=== PATIENT | female | born 1980 | race Caucasian/White ===

== ENCOUNTER 2020-11-06 18:13 | Emergency (ER) | payer OTHER ==
[2020-11-06 18:20] VITALS: BP 130/82; PULSE 64; TEMP 98.4
[2020-11-06] MEDS ORDERED: SODIUM CHLORIDE 0.9% 1,000 ML IV ONE (18:36)
[2020-11-06] MEDS ORDERED: ACETAMINOPHEN TAB 500 MG TAB PO STA (18:38)
--- NOTE | 2020-11-06 18:41 | ED ---
General Adult HPI - General Chief complaint: Vaginal Bleeding Stated complaint: 10 wks - bleeding Time Seen by Provider: 11/06/20 18:26 Source: patient, RN notes reviewed Mode of arrival: ambulatory Limitations: no limitations - History of Present Illness Initial comments: female currently 10 weeks with an LMP of August 2405/14 to the emergency room for a chief complaint of vaginal bleeding. Patient states she has had light brown spotting for the past 3 days. States that she thought this was probably implantation bleeding but started to get some cramping pain in her pelvis about 2 hours ago. Denies fevers or chills. Denies nausea vomiting or diarrhea. Patient reports she has had about 4 miscarriages in the past so is cautious about this. Patient recently moved to the area and currently does not have [facility].Patient has no other complaints at this time including shortness of breath, chest pain, nausea or vomiting, headache, or visual changes. - Related Data Previous Rx's Medication Instructions Recorded Pnv No.95/Ferrous Fum/Folic AC 1 each PO DAILY #60 tablet 11/06/20 [ Multivitamin Tablet] Allergies Allergy/AdvReac Type Severity Reaction Status Date / Time morphine Allergy Rash/Hives Verified 11/06/20 19:23 Review of Systems ROS Statement: Those systems with pertinent positive or pertinent negative responses have been documented in the HPI. ROS Other: All systems not noted in ROS Statement are negative. Past Medical History Additional Past Medical History / Comment(s): Cervical CA History of Any Multi-Drug Resistant Organisms: None Reported Past Surgical History: Section Past Psychological History: No Psychological Hx Reported Smoking Status: Former smoker Past Alcohol Use History: None Reported Past Drug Use History: None Reported General Exam Limitations: no limitations General appearance: alert, in no apparent distress Head exam: Present: atraumatic, normocephalic, normal inspection Eye exam: Present: normal appearance, PERRL, EOMI. Absent: scleral icterus, conjunctival injection, periorbital swelling ENT exam: Present: normal exam, mucous membranes moist Neck exam: Present: normal inspection. Absent: tenderness, meningismus, lymphadenopathy Respiratory exam: Present: normal lung sounds bilaterally. Absent: respiratory distress, wheezes, rales, rhonchi, stridor Cardiovascular Exam: Present: regular rate, normal rhythm, normal heart sounds. Absent: bradycardia, tachycardia, irregular rhythm GI/Abdominal exam: Present: soft, tenderness (minimal generalized lower abdomina l tendenress), normal bowel sounds. Absent: distended, guarding, rebound, rigid Speculum exam: Absent: other (pt refused) Neurological exam: Present: alert Course Vital Signs 11/06/20 11/06/20 18:14 18:54 Temperature 98.4 F Pulse Rate 64 Respiratory 17 16 Rate Blood Pressure 130/82 O2 Sat by Pulse 99 Oximetry Medical Decision Making - Medical Decision Making 40-year-old female currently 10 weeks with an LMP of August 31 presents for vaginal spotting. Patient reports she has had light brown spotting for the past few days. Some slight abdominal cramping as well. Minimal tenderness noted suprapubically. Patient refusing pelvic exam stating she has been poked and prodded enough and would prefer to wait to do this until she sees [facility]. I did note that I cannot quantify blood volume without doing a pelvic however patient states it is very light. CBC CMP unremarkable. Urinalysis is negative for infection. Patient's blood type is O+. Ultrasound does reveal a twin gestation with dichorionic diamniotic gestation. There is a thick septum the fetuses. Patient also has ovarian cysts noted which could be causing some of the cramping pain. Patient has not been taking vit amins which I did recommend she begin. Rx given. Patient [place] the [place] and does not have established care with an [facility]. I did speak with on-call [facility] Dr. Guy who recommends she call the office for an appointment on Sunday. However he reports she may need to be seen by [employer] teacher/GYN which can be determined at that time. Patient will return here for any worsening symptoms. I discussed this case with attending Dr. Emery who agrees with this assessment and treatment plan. - Lab Data Result diagrams: 11/06/20 18:40 11/06/20 18:40 Lab Results 11/06/20 11/06/20 11/06/20 Range/Units 18:35 18:40 18:40 WBC 11.3 H (3.8-10.6) k/uL RBC 4.43 (3.80-5.40) m/uL Hgb 13.2 (11.4-16.0) gm/dL Hct 37.7 (34.0-46.0) % MCV 85.1 (80.0-100.0) fL MCH 29.8 (25.0-35.0) pg MCHC 35.0 (31.0-37.0) g/dL RDW 13.2 (11.5-15.5) % Plt Count 176 (150-450) k/uL MPV 8.0 Neutrophils % 71 % Lymphocytes % 20 % Monocytes % 4 % Eosinophils % 3 % Basophils % 1 % Neutrophils # 8.1 H (1.3-7.7) k/uL Lymphocytes # 2.2 (1.0-4.8) k/uL Monocytes # 0.5 (0-1.0) k/uL Eosinophils # 0.3 (0-0.7) k/uL Basophils # 0.1 (0-0.2) k/uL Sodium (137-145) mmol/L Potassium (3.5-5.1) mmol/L Chloride (98-107) mmol/L Carbon Dioxide (22-30) mmol/L Anion Gap mmol/L BUN (7-17) mg/dL Creatinine (0.52-1.04) mg/dL Est GFR (CKD-EPI)AfAm (>60 ml/min/1.73 sqM) Est GFR (CKD-EPI)NonAf (>60 ml/min/1.73 sqM) Glucose (74-99) mg/dL Calcium (8.4-10.2) mg/dL Total Bilirubin (0.2-1.3) mg/dL AST (14-36) U/L ALT (4-34) U/L Alkaline Phosphatase (38-126) U/L Total Protein (6.3-8.2) g/dL Albumin (3.5-5.0) g/dL Urine Color Colorless Urine Appearance Clear (Clear) Urine pH 6.0 (5.0-8.0) Ur Specific Barre 1.004 (1.001-1.035) Urine Protein Negative (Negative) Urine Glucose (UA) Negative (Negative) Urine Ketones Negative (Negative) Urine Blood Negative (Negative) Urine Nitrite Negative (Negative) Urine Bilirubin Negative (Negative) Urine Urobilinogen <2.0 (<2.0) mg/dL Ur Leukocyte Esterase Negative (Negative) Blood Type O Positive Blood Type Recheck No Previous Record Bld Type Recheck Status [facility] ONLY 11/06/20 Range/Units 18:40 WBC (3.8-10.6) k/uL RBC (3.80-5.40) m/uL Hgb (11.4-16.0) gm/dL Hct (34.0-46.0) % MCV (80.0-100.0) fL MCH (25.0-35.0) pg MCHC (31.0-37.0) g/dL RDW (11.5-15.5) % Plt Count (150-450) k/uL MPV Neutrophils % % Lymphocytes % % Monocytes % % Eosinophils % % Basophils % % Neutrophils # (1.3-7.7) k/uL Lymphocytes # (1.0-4.8) k/uL Monocytes # (0-1.0) k/uL Eosinophils # (0-0.7) k/uL Basophils # (0-0.2) k/uL Sodium 133 L (137-145) mmol/L Potassium 3.8 (3.5-5.1) mmol/L Chloride 107 (98-107) mmol/L Carbon Dioxide 21 L (22-30) mmol/L Anion Gap 5 mmol/L BUN 10 (7-17) mg/dL Creatinine 0.54 (0.52-1.04) mg/dL Est GFR (CKD-EPI)AfAm >90 (>60 ml/min/1.73 sqM) Est GFR (CKD-EPI)NonAf >90 (>60 ml/min/1.73 sqM) Glucose 89 (74-99) mg/dL Calcium 9.3 (8.4-10.2) mg/dL Total Bilirubin 0.2 (0.2-1.3) mg/dL AST 20 (14-36) U/L ALT 14 (4-34) U/L Alkaline Phosphatase 52 (38-126) U/L Total Protein 6.6 (6.3-8.2) g/dL Albumin 3.9 (3.5-5.0) g/dL Urine Color Urine Appearance (Clear) Urine pH (5.0-8.0) Ur Specific Barre (1.001-1.035) Urine Protein (Negative) Urine Glucose (UA) (Negative) Urine Ketones (Negative) Urine Blood (Negative) Urine Nitrite (Negative) Urine Bilirubin (Negative) Urine Urobilinogen (<2.0) mg/dL Ur Leukocyte Esterase (Negative) Blood Type Blood Type Recheck Bld Type Recheck Status Disposition Clinical Impression: Twin gestation in first trimester, Vaginal bleeding, Threatened miscarriage Disposition: HOME SELF-CARE Condition: Good Instructions (If sedation given, give patient instructions): Threatened Miscarriage (ED) Additional Instructions: Please take vitamins. Please follow-up with [facility]. If you have any worsening symptoms return to the emergency room. Prescriptions: Pnv No.95/Ferrous Fum/Folic AC [ Multivitamin Tablet] 1 each PO DAILY #60 tablet Is patient prescribed a controlled substance at d/c from ED?: No Referrals: Nonstaff,Physician [Primary Care Provider] - 1-2 days Lew Kimball MD [STAFF PHYSICIAN] - 1-2 days Time of Disposition: 19:57
[2020-11-06 18:54] LABS: Basophils # (A) 0.1 k/uL (0-0.2); Basophils % (A) 1 %; Eosinophils # (A) 0.3 k/uL (0-0.7); Eosinophils % (A) 3 %; HCT 37.7 % (34.0-46.0); HGB 13.2 gm/dL (11.4-16.0); Lymphocytes # (A) 2.2 k/uL (1.0-4.8); Lymphocytes % (A) 20 %; MCH 29.8 pg (25.0-35.0); MCV 85.1 fL (80.0-100.0); Monocytes # (A) 0.5 k/uL (0-1.0); Monocytes % (A) 4 %; Neutrophils # (A) 8.1 k/uL (1.3-7.7); Neutrophils % (A) 71 %; Platelet Count 176 k/uL (150-450); RBC 4.43 m/uL (3.80-5.40); RDW 13.2 % (11.5-15.5); WBC 11.3 k/uL (3.8-10.6)
[2020-11-06 19:00] VITALS: RESP 16
[2020-11-06 19:01] LABS: Appearance,Urine Clear (Clear); Bilirubin,Urine Negative (Negative); Blood,Urine Negative (Negative); Color,Urine Colorless; Glucose,Urine (UA) Negative (Negative); Ketones,Urine Negative (Negative); Leukocyte Esterase,Urine Negative (Negative); Nitrite,Urine Negative (Negative); Protein,Urine Negative (Negative); Specific Gravity,Urine 1.004 (1.001-1.035); Urobilinogen,Urine <2.0 mg/dL (<2.0)
[2020-11-06 19:07] LABS: ALT 14 U/L (4-34); AST 20 U/L (14-36); African American GFR (CKD) >90 (>60 ml/min/1.73 sqM); Albumin 3.9 g/dL (3.5-5.0); Alkaline Phosphatase 52 U/L (38-126); Anion Gap 5 mmol/L; Blood Urea Nitrogen 10 mg/dL (7-17); Calcium 9.3 mg/dL (8.4-10.2); Carbon Dioxide 21 mmol/L (22-30); Chloride 107 mmol/L (98-107); Glucose 89 mg/dL (74-99); Non-African American GFR(CKD) >90 (>60 ml/min/1.73 sqM); Potassium 3.8 mmol/L (3.5-5.1); Sodium 133 mmol/L (137-145); Total Bilirubin 0.2 mg/dL (0.2-1.3); Total Protein 6.6 g/dL (6.3-8.2)
--- NOTE | 2020-11-06 19:27 | US ---
EXAMINATION TYPE: US OB <= 14 wk twins DATE OF EXAM: 11/06/2020 COMPARISON: NONE CLINICAL HISTORY: pain. spotting EXAM PERFORMED: Transabdominal (TA) EXAM MEASUREMENTS: GESTATIONAL AGE / DATING Physician Established: Not yet established Dates by LMP: (9 weeks/4 days) EDC: 06/07/2021 Dates by First Scan: No previous this is first scan Dates by Current Scan for Baby A: ( 8 weeks/2 days) EDC: 06/16/2021 Dates by Current Scan for Baby B: (8 weeks/3 days) EDC: 06/15/2021 MATERNAL ANATOMY Uterus: 11.1 x 8.3 x 8.5 cm Right Ovary: 4.4 x 3.5 x 3.5 cm Left Ovary: 3.4 x 2.2 x 2.8 cm Post CDS / Adnexa: wnl Presence of free fluid: no Presence of subchorionic bleed: no Presence of two separate gestational sacs: yes GESTATION / SURVEY TWIN A CRL: 1.83 cm (8wks/2days) Yolk Sac (normal less than 6mm): 3 mm Heart Rate: 158 bpm Rhythm: Normal IUP: Viable IUP TWIN B CRL: 1.86 cm (wks/days) Yolk Sac (normal less than 6mm): 4 mm Heart Rate: 161 bpm Rhythm: Normal IUP: Viable IUP Date of LMP: 08/31/2020 Beta HcG (if available): Not available at this time Viable twin IUP. Cyst left ovary measuring 2.0 cm. Cyst right ovary measuring 3.0 cm IMPRESSION: Twin gestation.. This is a dichorionic diamniotic gestation. There is a thick septum the f etuses. The ultrasound gestational age is are 8 weeks and 2 days. No complicating process seen.
[2020-11-06 21:43] LABS: HCG,Quantitative Serum >225000.0 mIU/mL
== END 2020-11-06 20:05 | disposition home or self-care (01) ==
LOC: EC 18:13
DX: O20.0 Threatened abortion (principal); N83.202 Unspecified ovarian cyst, left side; N83.201 Unspecified ovarian cyst, right side; Z88.5 Allergy status to narcotic agent; Z85.41 Personal history of malignant neoplasm of cervix uteri; Z87.891 Personal history of nicotine dependence; Z3A.10 10 weeks gestation of pregnancy
CPT/HCPCS: 36415; 76801; 76802; 80053; 81003; 84702; 85025; 86900; 86901; 96360; 99284

== ENCOUNTER 2021-01-03 20:23 | Emergency (ER) | payer OTHER ==
[2021-01-03 20:38] VITALS: TEMP 98
[2021-01-03] MEDS ORDERED: SODIUM CHLORIDE 0.9% 1,000 ML IV ONE (21:27)
[2021-01-03 21:49] VITALS: RESP 18
[2021-01-03 22:06] LABS: Basophils % (A) 0 %; Eosinophils # (A) 0.3 k/uL (0-0.7); Eosinophils % (A) 2 %; HCT 32.1 % (34.0-46.0); HGB 11.6 gm/dL (11.4-16.0); Lymphocytes % (A) 16 %; MCH 29.9 pg (25.0-35.0); MCHC 36.2 g/dL (31.0-37.0); MCV 82.5 fL (80.0-100.0); Mean Platelet Volume 8.5; Monocytes # (A) 0.6 k/uL (0-1.0); Monocytes % (A) 5 %; Neutrophils # (A) 9.4 k/uL (1.3-7.7); Neutrophils % (A) 76 %; Platelet Count 180 k/uL (150-450); RBC 3.89 m/uL (3.80-5.40); RDW 14.7 % (11.5-15.5); WBC 12.4 k/uL (3.8-10.6)
[2021-01-03 22:10] LABS: Appearance,Urine Clear (Clear); Bilirubin,Urine Negative (Negative); Blood,Urine Negative (Negative); Color,Urine Light Yellow; Glucose,Urine (UA) Negative (Negative); Ketones,Urine Negative (Negative); Leukocyte Esterase,Urine Negative (Negative); Nitrite,Urine Negative (Negative); Protein,Urine Negative (Negative); Specific Gravity,Urine 1.008 (1.001-1.035); Urobilinogen,Urine <2.0 mg/dL (<2.0)
[2021-01-03 22:16] LABS: ALT 13 U/L (4-34); AST 19 U/L (14-36); African American GFR (CKD) >90 (>60 ml/min/1.73 sqM); Albumin 3.4 g/dL (3.5-5.0); Alkaline Phosphatase 61 U/L (38-126); Anion Gap 8 mmol/L; Blood Urea Nitrogen 11 mg/dL (7-17); Calcium 9.1 mg/dL (8.4-10.2); Carbon Dioxide 20 mmol/L (22-30); Chloride 104 mmol/L (98-107); Glucose 83 mg/dL (74-99); Lipase 138 U/L (23-300); Non-African American GFR(CKD) >90 (>60 ml/min/1.73 sqM); Potassium 3.8 mmol/L (3.5-5.1); Sodium 132 mmol/L (137-145); Total Bilirubin 0.3 mg/dL (0.2-1.3)
--- NOTE | 2021-01-03 23:37 | ED ---
Abdominal Pain HPI - General Chief Complaint: Abdominal Pain Stated Complaint: 18 wks preg with twins, ABD pain Time Seen by Provider: 01/03/21 20:44 Source: patient Mode of arrival: ambulatory Limitations: no limitations - History of Present Illness Initial Comments: 40 year old female patient who is 18 weeks with twin gestation, G7, P3, with 3 miscarriages in the past and presents to the emergency department today for evaluation of right-sided abdominal pain. States the pain has been present for the last 3-4 hours and seeming to get worse. States it is constant. Denies any radiation through to her back. Denies any abnormal vaginal bleeding or discharge. Denies hematuria, dysuria, urinary frequency, urinary urgency. States she had ultrasound last Sunday and everything looked fine. She states she has had some nausea, no vomiting. States she has been a little constipated, but did have a bowel movement today. Reports a small amount of blood in her stool. Has had three c-sections, no other abdominal surgeries. Patient denies any recent rash, cough, shortness of breath, chest pain, diarrhea, constipation, back pain, numbness, tingling, dizziness, weakness, headache, visual changes, or any other complaints. - Related Data Home Medications Medication Instructions Recorded Confirmed Acetaminophen Tab [Tylenol] 650 mg PO DAILY PRN 01/03/21 01/03/21 Calcium Carbonate [Tums] 500 mg PO Q4-6H PRN 01/03/21 01/03/21 Allergies Allergy/AdvReac Type Severity Reaction Status Date / Time morphine Allergy Rash/Hives Verified 01/03/21 22:01 Review of Systems ROS Statement: Those systems with pertinent positive or pertinent negative responses have been documented in the HPI. ROS Other: All systems not noted in ROS Statement are negative. Past Medical History Additional Past Medical History / Comment(s): Cervical CA History of Any Multi-Drug Resistant Organisms: None Reported Past Surgical History: Section Past Psychological History: No Psychological Hx Reported Smoking Status: Former smoker Past Alcohol Use History: None Reported Past Drug Use History: None Reported General Exam Limitations: no limitations General appearance: alert, in no apparent distress, other (Physical well- developed, well-nourished adult female patient in no acute distress. Vital signs upon presentation are temperature 98.0F, pulse 83, respirations 20, blood pressure 118/72, pulse ox 100% on room air.) Eye exam: Present: normal appearance, PERRL, EOMI. Absent: scleral icterus, conjunctival injection, periorbital swelling ENT exam: Present: normal exam, normal oropharynx, mucous membranes moist Respiratory exam: Present: normal lung sounds bilaterally. Absent: respiratory distress, wheezes, rales, rhonchi, stridor Cardiovascular Exam: Present: regular rate, normal rhythm, normal heart sounds. Absent: systolic murmur, diastolic murmur, rubs, gallop, clicks GI/Abdominal exam: Present: tenderness (right mid abdomen), normal bowel sounds, other (gravid abdomen). Absent: distended, guarding, rebound, rigid Neurological exam: Present: alert, oriented X3, CN II-XII intact Psychiatric exam: Present: normal affect, normal mood Skin exam: Present: warm, dry, intact, normal color. Absent: rash Course Vital Signs 01/03/21 01/03/21 01/03/21 20:30 21:48 23:10 Temperature 98.0 F Pulse Rate 83 60 74 Respiratory 20 18 18 Rate Blood Pressure 118/72 103/53 100/61 O2 Sat by Pulse 100 96 98 Oximetry 01/03/21 23:38 Temperature Pulse Rate 72 Respiratory 18 Rate Blood Pressure 113/60 O2 Sat by Pulse 97 Oximetry Medical Decision Making - Medical Decision Making 40-year-old female patient presents to the emergency department today for evaluation of right-sided abdominal pain. Patient is 19 weeks with twin gestation. She is G7, P3, 85 with 3 miscarriages in the past. Physical examination did reveal right-sided abdominal tenderness. Labs reviewed and revealed mildly elevated white blood cell count at 12.3 consistent with . She is afebrile normal vital signs. Ultrasound of the appendix was obtained but did they were unable to identify the appendix. Ultrasound of the fetuses were obtained and showed satisfactory growth compared to old exam at no evidence for placental abnormality. Upon reevaluation patient is resting in bed. States applying hot packs over the area did seem to help. States the pain is positional. We did discuss the possibility of early appendicitis and we discussed signs or symptoms of worsening of this condition. She does feel c omfortable being discharged home at this time. She is instructed to follow-up with ORDER ANALYST for recheck as soon as possible. Return parameters were discussed in detail. She verbalizes understanding and agrees with this plan. Case discussed with my attending Dr. Head. - Lab Data Result diagrams: 01/03/21 21:46 01/03/21 21:46 Lab Results 01/03/21 01/03/21 01/03/21 Range/Units 21:46 21:46 21:46 WBC 12.4 H (3.8-10.6) k/uL RBC 3.89 (3.80-5.40) m/uL Hgb 11.6 (11.4-16.0) gm/dL Hct 32.1 L (34.0-46.0) % MCV 82.5 (80.0-100.0) fL MCH 29.9 (25.0-35.0) pg MCHC 36.2 (31.0-37.0) g/dL RDW 14.7 (11.5-15.5) % Plt Count 180 (150-450) k/uL MPV 8.5 Neutrophils % 76 % Lymphocytes % 16 % Monocytes % 5 % Eosinophils % 2 % Basophils % 0 % Neutrophils # 9.4 H (1.3-7.7) k/uL Lymphocytes # 2.0 (1.0-4.8) k/uL Monocytes # 0.6 (0-1.0) k/uL Eosinophils # 0.3 (0-0.7) k/uL Basophils # 0.0 (0-0.2) k/uL Sodium 132 L (137-145) mmol/L Potassium 3.8 (3.5-5.1) mmol/L Chloride 104 (98-107) mmol/L Carbon Dioxide 20 L (22-30) mmol/L Anion Gap 8 mmol/L BUN 11 (7-17) mg/dL Creatinine 0.63 (0.52-1.04) mg/dL Est GFR (CKD-EPI)AfAm >90 (>60 ml/min/1.73 sqM) Est GFR (CKD-EPI)NonAf >90 (>60 ml/min/1.73 sqM) Glucose 83 (74-99) mg/dL Plasma Lactic Acid Douglas (0.7-2.0) mmol/L Calcium 9.1 (8.4-10.2) mg/dL Total Bilirubin 0.3 (0.2-1.3) mg/dL AST 19 (14-36) U/L ALT 13 (4-34) U/L Alkaline Phosphatase 61 (38-126) U/L Total Protein 6.0 L (6.3-8.2) g/dL Albumin 3.4 L (3.5-5.0) g/dL Lipase 138 (23-300) U/L Urine Color Light Yellow Urine Appearance Clear (Clear) Urine pH 7.0 (5.0-8.0) Ur Specific Christine 1.008 (1.001-1.035) Urine Protein Negative (Negative) Urine Glucose (UA) Negative (Negative) Urine Ketones Negative (Negative) Urine Blood Negative (Negative) Urine Nitrite Negative (Negative) Urine Bilirubin Negative (Negative) Urine Urobilinogen <2.0 (<2.0) mg/dL Ur Leukocyte Esterase Negative (Negative) 01/03/21 Range/Units 21:46 WBC (3.8-10.6) k/uL RBC (3.80-5.40) m/uL Hgb (11.4-16.0) gm/dL Hct (34.0-46.0) % MCV (80.0-100.0) fL MCH (25.0-35.0) pg MCHC (31.0-37.0) g/dL RDW (11.5-15.5) % Plt Count (150-450) k/uL MPV Neutrophils % % Lymphocytes % % Monocytes % % Eosinophils % % Basophils % % Neutrophils # (1.3-7.7) k/uL Lymphocytes # (1.0-4.8) k/uL Monocytes # (0-1.0) k/uL Eosinophils # (0-0.7) k/uL Basophils # (0-0.2) k/uL Sodium (137-145) mmol/L Potassium (3.5-5.1) mmol/L Chloride (98-107) mmol/L Carbon Dioxide (22-30) mmol/L Anion Gap mmol/L BUN (7-17) mg/dL Creatinine (0.52-1.04) mg/dL Est GFR (CKD-EPI)AfAm (>60 ml/min/1.73 sqM) Est GFR (CKD-EPI)NonAf (>60 ml/min/1.73 sqM) Glucose (74-99) mg/dL Plasma Lactic Acid Douglas 0.8 (0.7-2.0) mmol/L Calcium (8.4-10.2) mg/dL Total Bilirubin (0.2-1.3) mg/dL AST (14-36) U/L ALT (4-34) U/L Alkaline Phosphatase (38-126) U/L Total Protein (6.3-8.2) g/dL Albumin (3.5-5.0) g/dL Lipase (23-300) U/L Urine Color Urine Appearance (Clear) Urine pH (5.0-8.0) Ur Specific Christine (1.001-1.035) Urine Protein (Negative) Urine Glucose (UA) (Negative) Urine Ketones (Negative) Urine Blood (Negative) Urine Nitrite (Negative) Urine Bilirubin (Negative) Urine Urobilinogen (<2.0) mg/dL Ur Leukocyte Esterase (Negative) - Radiology Data Radiology results: report reviewed, image reviewed Ultrasound of the appendix is obtained. Report is reviewed in its entirety. Impression by Dr. Ortega shows appendix not seen. No solid or cystic mass identified. No free fluid. Ultrasound of the fetuses are obtained. Report was reviewed in its entirety. Impression by Dr. Ortega shows satisfactory growth compared to old exam of 11/06/2020. previa. No evidence of placental abruption. Disposition Clinical Impression: Abdominal pain during Disposition: HOME SELF-CARE Condition: Good Instructions (If sedation given, give patient instructions): Abdominal Pain in (ED) Additional Instructions: Follow up with an ORDER ANALYST for recheck as soon as possible. Take Tylenol for severe pain. Use warm packs as directed. Return for any new, worsening, or concerning symptoms. Return especially for elevation in temperature, vomiting, or worsening pain. Is patient prescribed a controlled substance at d/c from ED?: No Referrals: None,Stated [Primary Care Provider] - 1-2 days Time of Disposition: 00:12
[2021-01-03 23:40] VITALS: BP 113/60; PULSE 72
--- NOTE | 2021-01-03 23:44 | US ---
EXAMINATION TYPE: US abdomen APPY DATE OF EXAM: 01/03/2021 COMPARISON: NONE CLINICAL HISTORY: Right lower abd pain. Right-sided lower abdominal pain x 1 day. APPENDIX The appendix is not seen by ultrasound at this time. Is the appendix seen in its entirety from the proximal cecum to distal end: No Is there inflammatory changes or free fluid present: Not seen. IMPRESSION: Appendix not seen. No solid or cystic mass identified. No free fluid.
--- NOTE | 2021-01-04 | US ---
EXAMINATION TYPE: US OB >= 14 wk twins DATE OF EXAM: 01/03/2021 COMPARISON: US CLINICAL HISTORY: Right lower abd pain. Right-sided pain x 1 day. Hx 3 C-Sections, cervical cancer, 4 miscarriages, D & C x 2. . GESTATIONAL AGE / DATING Physician Established: (19 weeks/0 days) EDC: 05/30/2021 Dates by LMP: 08/23/2020 (19 weeks/0 days) EDC: 05/30/2020 Dates by First Scan: for Baby A: (16 weeks/5 days) EDC: 06/15/2021. Was called Baby B last scan. Dates by Current Scan for Baby A: (17 weeks/1 day) EDC: 06/12/2021. Baby A sac appears closer to cervix. Dates by First Scan: for Baby B: (16 weeks/4 days) EDC: 06/16/2021. Was called Baby A last scan. Dates by Current Scan for Baby B: (17 weeks/2 days) EDC: 06/11/2021 GENERAL TWIN SURVEY TWIN A LOCATION in regards to maternal abd: Right TWIN B LOCATION in regards to maternal abd: Left MEMBRANE SEEN: Yes CERVICAL LENGTH (transabdominal; norm > 3.0cm): 4.4 cm TWIN A: SURVEY/BIOMETRY PLACENTA: Posterior PREVIA: Limited visibility. Appears to be low lying 1.61 cm from cervix. DONALD:? 12.34 cm?Normal PRESENTATION: Breech BPD: 3.58 cm 17 weeks / 0 days HC: 13.54 cm 17 weeks / 0 days AC: 11.50 cm 17 weeks / 2 days FL: 2.33 cm 17 weeks / 0 days ESTIMATED WEIGHT IN GRAMS: 182.52 grams ESTIMATED WEIGHT IN LBS/OZS: 0 lbs. 6 oz. WEIGHT PERCENTAGE BASED ON ESTABLISHED DATES: <3% HC/AC: 1.18 Normal FL/AC: 20.31 HEART RATE: 149 bpm RHYTHM: Normal TWIN B: SURVEY/BIOMETRY PLACENTA: Anterior. Appears heterogeneous posteriorly. PREVIA: No previa DONALD:? 13.10 cm?Normal PRESENTATION: Breech BPD: 3.70 cm 17 weeks / 2 days HC: 13.87 cm 17 weeks / 2 days AC: 12.46 cm 18 weeks / 1 day FL: 2.22 cm 16 weeks / 5 days ESTIMATED WEIGHT IN GRAMS: 192.27 grams ESTIMATED WEIGHT IN LBS/OZS: 0 lbs. 7 oz. WEIGHT PERCENTAGE BASED ON ESTABLISHED DATES: <3% HC/AC: 1.11 Normal FL/AC: 17.80 HEART RATE: 152 bpm RHYTHM: Normal Scanned patient's area of pain, right pelvic area. Prominent blood vessels seen. Scanned left side fo r comparison. IMPRESSION: There is satisfactory growth compared to old exam of November 06, 2020. No placenta previa. No evidence of placenta abruption.
== END 2021-01-04 00:24 | disposition home or self-care (01) ==
LOC: EC 20:23
DX: O26.892 Other specified pregnancy related conditions, second trimester (principal); R10.9 Unspecified abdominal pain; R10.819 Abdominal tenderness, unspecified site; O99.112 Other diseases of the blood and blood-forming organs and certain disorders involving the immune mechanism complicating pregnancy, second trimester; D72.829 Elevated white blood cell count, unspecified; Z88.5 Allergy status to narcotic agent; Z3A.19 19 weeks gestation of pregnancy; Z87.891 Personal history of nicotine dependence; Z85.41 Personal history of malignant neoplasm of cervix uteri
CPT/HCPCS: 36415; 76705; 76805; 76810; 80053; 81003; 83605; 83690; 85025; 96360; 99284

== ENCOUNTER → 2021-02-21 | Outpatient (CLI) | payer OTHER ==
--- NOTE | 2021-02-21 15:55 | US ---
EXAMINATION TYPE: US venous doppler duplex LE LT DATE OF EXAM: 02/21/2021 3:43 PM COMPARISON: NONE CLINICAL HISTORY: 40-year-old female LLE M79.662 Pain in left lower limb. Pt states left leg pain x 2 days, pt approximately 24 weeks with twins SIDE PERFORMED: Left TECHNIQUE: The lower extremity deep venous system is examined utilizing real time linear array sonog emilia with graded compression, doppler sonography and color-flow sonography. FINDINGS: VESSELS IMAGED: Common Femoral Vein Deep Femoral Vein Greater Saphenous Vein * Femoral Vein Popliteal Vein Small Saphenous Vein * Proximal Calf Veins (* superficial vessels) Left Leg: Negative for DVT Results called to Nilsa BRANNON at Dr's office at time of exam IMPRESSION: No evidence for DVT within the left lower extremity imaged from the groin to the upper calf.
== END | disposition home or self-care (01) ==
LOC: RADUSWWP 15:27
PROVIDERS: ATTEND Obstetrics & Gynecology
DX: M79.662 Pain in left lower leg (principal); Z3A.24 24 weeks gestation of pregnancy

== ENCOUNTER → 2021-03-17 | Outpatient (CLI) | payer OTHER ==
--- NOTE | 2021-03-17 12:48 | MR ---
EXAMINATION TYPE: MR lumbar spine wo con DATE OF EXAM: 03/17/2021 12:19 PM COMPARISON: NONE HISTORY: Low back pain, swelling, left leg weakness. Multiplanar, MultiSpin echo imaging of the lumbar spine was performed. L1-L2: Normal disc appearance without desiccation. No herniation, protrusion or disc bulging. No ca nal stenosis is present. Foramina are patent bilaterally. L2-L3: Normal disc appearance without desiccation. No herniation, protrusion or disc bulging. No ca nal stenosis is present. Foramina are patent bilaterally. L3-L4: Normal disc appearance without desiccation. No herniation, protrusion or disc bulging. No ca nal stenosis is present. Foramina are patent bilaterally. L4-L5: Normal disc appearance without desiccation. No herniation, protrusion or disc bulging. No ca nal stenosis is present. Foramina are patent bilaterally. L5-S1: Normal disc appearance without desiccation. No herniation, protrusion or disc bulging. No ca nal stenosis is present. Foramina are patent bilaterally. Lumbar segments are intact. No paraspinal masses are identified. Conus medullaris has a normal appe arance. IMPRESSION: 1. No distinct abnormality appreciated.
== END | disposition home or self-care (01) ==
LOC: RADMRIMAIN 11:06
PROVIDERS: ATTEND Orthopaedic Surgery
DX: M54.5 Low back pain (principal)
CPT/HCPCS: 72148

== ENCOUNTER 2021-03-21 13:08 | Outpatient (CLI) | payer OTHER ==
[2021-03-21 14:48] VITALS: BP 118/66; PULSE 95; RESP 14; TEMP 98.2
--- NOTE | 2021-04-24 11:22 | P.MSEPDOC ---
Presenting Problems - Arrival Data Date of Arrival on Unit: 03/21/21 Time of Arrival on Unit: 13:14 Mode of Transport: Ambulatory - Complaint OB-Reason for Admission/Chief Complaint: Other Comment: woke to a tight abd at 3am. some contractions and "pink" when wiping on two occasions Medical History - Information : 8 Para: 3 Term: 3 : 0 Abortions: Spontaneous or Elective: 0 Number of Living Children: 3 - Gestational Age Gestational Age by VANESSA (wks/days): 28 Weeks and 1 Days - History Complications: Multiple Review of Systems - Review of Systems Constitutional: No problems Breast: No problems ENT: No problems Cardiovascular: No problems Respiratory: No problems Gastrointestinal: No problems Genitourinary: No problems Musculoskeletal: Muscle weakness Neurological: No problems Skin: No problems Comment: pt having left leg pain an numbness with . has been seen by ortho and has had mri Vital Signs - Temperature Temperature: 98.2 F Temperature Source: Temporal Artery Scan - Pulse Left Brachial Pulse Rate: 95 Pulse Assessment Method: Automatic Cuff - Respirations Respiratory Rate: 14 Oxygen Delivery Method: Room Air - Blood Pressure Left Arm Blood Pressure: 118/66 Blood Pressure Mean: 83 Blood Pressure Source: Automatic Cuff Medical Screen Scoring - Assessment - Baby A Baseline FHR: 150 - Assessment - Baby B Baseline FHR: 140 Physician Notification - Physician Notified Physician Notified Date: 03/21/21 Physician Notified Time: 14:08 Physician: Christiano Adan New Order Received: Yes - Notification Comment Comment: perform ffn, vag exam, if not dilated discharge home Disposition - Disposition OB Disposition: Discharge to home Discharge Date: 03/21/21 Discharge Time: 14:30 I agree with the RN Medical Screening Exam: Yes Physician's MSE Comment: I have neither seen nor examined the patient. Case reviewed; plan agreed upon as documented in EMR&OBIX.: Yes Diagnosis: RELATED CONDITIONS, UNSPECIFIED, THIRD TRIMESTER
== END 2021-03-21 14:49 | disposition home or self-care (01) ==
LOC: FBPOP 13:08
PROVIDERS: ATTEND Obstetrics & Gynecology
DX: O26.893 Other specified pregnancy related conditions, third trimester (principal); R10.9 Unspecified abdominal pain; O09.523 Supervision of elderly multigravida, third trimester; Z3A.28 28 weeks gestation of pregnancy; Z88.5 Allergy status to narcotic agent
CPT/HCPCS: 59025; 82731; G0463; 99213

== ENCOUNTER → 2021-03-29 | Day surgery (SDC) | payer OTHER ==
[~2021-03-29] MED LIST: IV FLUID CONTINUATION 1,000 ML IV ONE; LACTATED RINGERS 1,000 ML IV ONE; LIDOCAINE 1% (10MG/ML) FOR IV START INTRADERMA ONE; fentaNYL (PF) 50 MCG/ML 2 ML AMP ONE; methylPREDNISolone ACETATE 40 MG/ML 1 ML VIAL ONE
--- NOTE | 2021-03-29 09:27 | P.PCN ---
Date of Procedure: 03/29/21 Procedure(s) Performed: PREOPERATIVE DIAGNOSIS: 1- Lumbar radiculopathy POSTOPERATIVE DIAGNOSIS: Same as preop diagnosis. PROCEDURE 1. Lumbar epidural steroid injection under fluoroscopic guidance at the L5-S1 level. ANESTHESIA: Local with 1% lidocaine 3 ml and , moderate sedation with intravenous fentanyle 100 Mcg EBL: Minimal PROCEDURE INDICATION: The patient with low back pain and radiculitis symptoms unresponsive to conservative treatment. Fluoroscopy was used to optimize visualization of the needle placement and to maximize safety. PROCEDURE DESCRIPTION / TECHNIQUE: The patient was seen and identified in the preoperative area. Risks, benefits, complications including but not limited to infections ,bleeding ,allergic reaction to the medications ,nerve damage and not complete pain releife , and alternatives were discussed with the patient. The patient agreed to proceed with the procedure and signed the consent. IV was started, and vital signs were stable. Patient was taken to the OR and time out was completed. The patient was placed in the sitting position . The lumbosacral area was prepped and draped in the usual sterile fashion.ere closely monitored during the procedure. Conscious sedation was used during the procedure to decrease patients anxiety. Vital signs was monitered during the entire procedure. , the L5-S1 interlaminar space was identified and the skin over this site was marked and then infiltrated with 1% lidocaine subcutaneously. Subsequently, a 20-gauge Tuohy epidural needle was inserted and advanced toward the epidural space using the ``Loss of resistance technique , after negative aspiration for blood and CSF and in the absence of paresthesias. Again after negative aspiration, a 6 ml mixture containing 40 mg of Depo-medrol , and 2 ml of preservative free Normal Saline, and 2 ml of preservative free lidocaine 1% solution was injected . Needle was withdrawn intact, skin was cleansed, and bandages were applied. COMPLICATIONS: None DISPOSITION / PLANS: The patient was placed in a supine position and transferred to the recovery area in a stable condition for observation. There was no evidence of lower extremity motor or sensory deficit after the procedure. Patient was discharged from the recovery room after meeting discharge criteria. Home discharge instructions were given to the patient by the staff. The patient was reexamined prior to discharge. The patient will schedule a follow up in the clinic in 2-4 weeks. note= patient is 29 weeks , and she is complaining of severe numbness and tingling sensation and some weakness in her lower extremity, symptoms started several weeks ago, and risk and benefits of the procedure discussed with the patient, and she agreed to proceed
[2021-03-29 09:35] VITALS: RESP 18
[2021-03-29 10:02] VITALS: BP 126/87; PULSE 83
== END ==
LOC: ORPAIN 08:25
PROVIDERS: ATTEND Specialist
DX: Z88.5 Allergy status to narcotic agent (principal); Z3A.29 29 weeks gestation of pregnancy
CPT/HCPCS: 62323; J1030; J3010

== ENCOUNTER 2021-04-26 09:14 | Day surgery (SDC) | payer OTHER ==
[2021-04-22 11:55] VITALS: BMI 36.0
[~2021-04-26 09:14] MED LIST changes: -IV FLUID CONTINUATION 1,000 ML IV ONE; -LACTATED RINGERS 1,000 ML IV ONE; +LACTATED RINGERS 1,000 ML IV SCH; -LIDOCAINE 1% (10MG/ML) FOR IV START INTRADERMA ONE; -fentaNYL (PF) 50 MCG/ML 2 ML AMP ONE; -methylPREDNISolone ACETATE 40 MG/ML 1 ML VIAL ONE
[2021-04-26 09:47] VITALS: BP 136/76; PULSE 75; RESP 18; TEMP 97.3
[2021-04-26 09:50] LABS: Glucose,Whole Blood 85 mg/dL (75-99)
== END 2021-04-26 10:26 | disposition home or self-care (01) ==
LOC: ORPAIN 09:14
PROVIDERS: ATTEND Anesthesiology
DX: M46.1 Sacroiliitis, not elsewhere classified (principal); Z53.9 Procedure and treatment not carried out, unspecified reason; M54.16 Radiculopathy, lumbar region

== ENCOUNTER 2021-05-10 06:33 | Day surgery (SDC) | payer OTHER ==
[2021-05-05 14:45] VITALS: BMI 35.6
[2021-05-10 06:59] VITALS: RESP 16; TEMP 97.1
[2021-05-10] MEDS ORDERED: LIDOCAINE 1% (10MG/ML) FOR IV START INTRADERMA ONE (07:08)
[2021-05-10] MEDS ORDERED: fentaNYL (PF) 50 MCG/ML 2 ML AMP ONE (07:22)
[2021-05-10] MEDS ORDERED: ROPIVACAINE 5MG/ML 20ML VIAL ONE (07:22)
[2021-05-10] MEDS ORDERED: methylPREDNISolone ACETATE 40 MG/ML 1 ML VIAL ONE (07:22)
[2021-05-10 07:27] LABS: Glucose,Whole Blood 81 mg/dL (75-99)
--- NOTE | 2021-05-10 07:48 | P.PCN ---
Date of Procedure: 05/10/21 Procedure(s) Performed: Procedure= Left sacroiliac joints steroid injection under fluoroscopy guidance (fluoroscopy image stored on file in the radiology Department ) Preoperative diagnosis= 1-sacroiliitis 2-lumbar radiculopathy Postoperative diagnosis=Same as preop Diagnosis . Complication = none Condition= stable Anesthesia= moderate sedation with intravenous fentanyl 100 micrograms . Indication for the procedure= patient complaining of low back pain , examination was positive for severe tenderness over the left sacroiliac joints bilaterally and patient diagnosed with sacroiliitis, for this reason she was good candidate for sacroiliac joint steroid injection. Description of the procedure= procedure risk and benefits discussed with the patient, including but not limited, risk of infection and bleeding, and ALLERGIC reaction to the medication and not complete pain relief and patient agreed with the preceding patient taken to the operating room, placed in left semi laterla position or standard monitors applied to the patient then after induction of anesthesia back prepped with chlorhexidine 3 times ,. Then the left sacroiliac joint steroid injection done under strict sterile technique local infiltration of the skin and subcu interstitial at the location of the left sacroiliac joint then a 22-gauge Quincke Needle advanced slowly under fluoroscopy time placed in the left sacroiliac joint, needle placement confirmed with AP and oblique and lateral view then after appropriate needle placement confirmed and after negative aspiration 0.5% Ropivacaine 4 mL and 40 mg of Depo-Medrol injected in the left sacroiliac joint after negative aspiration patient tolerated the procedure well that any complications and she will follow up in clinic 3 weeks (LEAD apron used to cover the abdominal area because patient is 35 weeks )
[2021-05-10 08:02] VITALS: BP 142/90; PULSE 67
--- NOTE | 2021-05-10 08:17 | FL ---
EXAMINATION TYPE: FL guided pain mgmt statistic DATE OF EXAM: 05/10/2021 CLINICAL HISTORY: Left sacroiliac joint pain. TECHNIQUE: Fluoroscopy. COMPARISON: None. FINDINGS: Fluoroscopic guidance was provided during pain relief procedure performed by Dr. Box . A total of 20 seconds of fluoroscopic time was utilized during the procedure and two spot images a re acquired. Images acquired shows needle localization at level of left sacroiliac joint. IMPRESSION: As Above.
== END 2021-05-10 08:13 | disposition home or self-care (01) ==
LOC: ORPAIN 06:33
PROVIDERS: ATTEND Specialist
DX: M46.1 Sacroiliitis, not elsewhere classified (principal); M54.16 Radiculopathy, lumbar region; Z88.5 Allergy status to narcotic agent
CPT/HCPCS: J1030; J3010; J2795; G0260; 27096; 99152

== ENCOUNTER 2021-05-11 21:52 | Outpatient (CLI) | payer OTHER ==
[2021-05-11 22:05] VITALS: BP 145/82; PULSE 75; TEMP 98.1
[2021-05-11 23:40] VITALS: RESP 16
--- NOTE | 2021-05-21 11:49 | P.MSEPDOC ---
Presenting Problems - Arrival Data Date of Arrival on Unit: 05/11/21 Time of Arrival on Unit: 21:52 Mode of Transport: Wheelchair - Complaint OB-Reason for Admission/Chief Complaint: Headache Comment: pt. present to triage due to headache that started yesturday, pt. took. tylenol about an hour ago ineffective 6/10 dull throb, pelvic pressure sharp pain thats been ongoing 3 months pt. follows orthopedic mangement for pain but the last 3-4 days its been extreme 10/10 pain Medical History - Information : 4 Para: 3 Term: 2 : 0 Abortions: Spontaneous or Elective: 0 Number of Living Children: 3 - Gestational Age Gestational Age by VANESSA (wks/days): 35 Weeks and 3 Days - History Complications: GDM, Multiple Comment: patient is having twins Review of Systems - Review of Systems Constitutional: No problems Breast: No problems ENT: No problems Cardiovascular: No problems Respiratory: No problems Gastrointestinal: No problems Genitourinary: No problems Musculoskeletal: No problems Neurological: No problems Skin: No problems Vital Signs - Temperature Temperature: 98.1 F Temperature Source: Oral - Pulse Right Brachial Pulse Rate: 75 Pulse Assessment Method: Automatic Cuff - Respirations Respiratory Rate: 16 Oxygen Delivery Method: Room Air O2 Sat by Pulse Oximetry: 97 - Blood Pressure Right Arm Blood Pressure: 145/82 Blood Pressure Mean: 103 Blood Pressure Source: Automatic Cuff Medical Screen Scoring - Uterine Contractions Resting: Soft to palpation - Assessment - Baby A Baseline FHR: 125 Heart Rate - NICHD Category: Category I (Normal) NST: Reactive - Assessment - Baby B Baseline FHR: 120 Heart Rate - NICHD Category: Category I (Normal) NST: Reactive Physician Notification - Physician Notified Physician Notified Date: 05/11/21 Physician Notified Time: 22:15 Physician: Christiano Adan Order Received: Yes - Notification Comment Comment: orders to watch vitals for 1 hour, vitals reviewed with Dr. Adan, reactive NSTs, no contractions noted, maternal assesment WNL, orders to discharge patient home Maternal Triage Index - Maternal Triage Index Presenting for scheduled procedure w/no complaint: No - Stat/Priority 1 Stat Priority 1: No - Urgent/Priority 2 Urgent Priority 2: No - Prompt/Priority 3 Prompt Priority 3: Yes Criteria Met for Priority 3: pt. present to [facility] due to a headache 05/14, bc ng out [facility] orders to watch vitals for 1 Hour - Non-Urgent/Priority 4 Non-Urgent Priority 4: No - Scheduled/Requesting Priority 5 Scheduled/Requesting Priority 5: No Disposition - Disposition OB Disposition: Discharge to home Discharge Date: 05/11/21 Discharge Time: 23:19 I agree with the RN Medical Screening Exam: Yes Physician's MSE Comment: I have neither seen nor examined the patient. Case reviewed; plan agreed upon as documented in EMR&OBIX.: Yes Diagnosis: RELATED CONDITIONS, UNSPECIFIED, THIRD TRIMESTER
== END 2021-05-11 23:19 | disposition home or self-care (01) ==
LOC: FBPOP 21:52
PROVIDERS: ATTEND Obstetrics & Gynecology
DX: O26.893 Other specified pregnancy related conditions, third trimester (principal); R51.9 Headache, unspecified; Z3A.35 35 weeks gestation of pregnancy; Z88.5 Allergy status to narcotic agent
CPT/HCPCS: 59025; G0463; 99215

== ENCOUNTER 2021-05-17 19:44 | Inpatient (IN) | payer OTHER ==
[2021-05-17] MEDS ORDERED: LACTATED RINGERS 1,000 ML IV SCH ×2 (20:15→22:28)
[2021-05-17] MEDS ORDERED: ACETAMINOPHEN IV (For NPO) 1,000 MG in EMPTY BAG 1 BAG IVPB ONE (20:16)
[2021-05-17 20:27] LABS: Appearance,Urine Clear (Clear); Bilirubin,Urine Negative (Negative); Blood,Urine Negative (Negative); Color,Urine Light Yellow; Glucose,Urine (UA) Negative (Negative); Ketones,Urine Negative (Negative); Leukocyte Esterase,Urine Negative (Negative); Nitrite,Urine Negative (Negative); Protein,Urine Negative (Negative); Specific Gravity,Urine 1.008 (1.001-1.035); Urobilinogen,Urine <2.0 mg/dL (<2.0)
[2021-05-17 20:30] LABS: Anisocytosis Slight; Basophils # (A) 0.1 k/uL (0-0.2); Basophils % (A) 1 %; Eosinophils # (A) 0.2 k/uL (0-0.7); Eosinophils % (A) 2 %; HGB 11.8 gm/dL (11.4-16.0); Hypochromasia Slight; Lymphocytes # (A) 1.9 k/uL (1.0-4.8); Lymphocytes % (A) 19 %; MCH 27.5 pg (25.0-35.0); MCHC 34.8 g/dL (31.0-37.0); Mean Platelet Volume 11.6; Microcytosis Slight; Monocytes # (A) 0.4 k/uL (0-1.0); Monocytes % (A) 4 %; Neutrophils # (A) 7.4 k/uL (1.3-7.7); Neutrophils % (A) 74 %; Platelet Count 128 k/uL (150-450); Poikilocytosis Moderate; RDW 16.3 % (11.5-15.5)
[2021-05-17 20:39] LABS: Creatinine,Urine Random 46.8 mg/dL
[2021-05-17 20:40] LABS: ALT 13 U/L (4-34); AST 32 U/L (14-36); African American GFR (CKD) >90 (>60 ml/min/1.73 sqM); Blood Urea Nitrogen 11 mg/dL (7-17); LDH 697 U/L (313-618); Non-African American GFR(CKD) >90 (>60 ml/min/1.73 sqM); Uric Acid 6.4 mg/dL (3.7-7.4)
[2021-05-17 20:40] LABS: Creatinine,Urine Random 47.8 mg/dL; Protein/Creatinine Ratio,Urine 0.314
[2021-05-17 20:49] LABS: Large Platelets Present; Poikilocytosis (M) Present
[2021-05-17] MEDS ORDERED: CITRIC ACID-SODIUM CITRATE 15 ML CUP PO ONE (20:55)
[2021-05-17] MEDS ORDERED: LABETALOL 5 MG/ML VIAL MDV IVP PRN ×3 (20:57)
[2021-05-17] MEDS ORDERED: hydrALAZINE HCL 20 MG/ML 1 ML VIAL IVP PRN (20:57)
[2021-05-17] MEDS ORDERED: MAGNESIUM SULFATE-WATER PMX 4 GM in WATER FOR INJECTION 1 100ML.BAG IVPB ONE (20:57)
[2021-05-17] MEDS ORDERED: CALCIUM GLUCONATE 1 GM/10 ML VIAL IV PRN (20:57)
[2021-05-17 20:59] LABS: INR 0.9 (<1.2); Partial Thromboplastin Time 23.9 sec (22.0-30.0); Prothrombin Time 9.9 sec (9.0-12.0)
[2021-05-17] MEDS ORDERED: ONDANSETRON 4 MG/2 ML VIAL ONE (21:31)
[2021-05-17] MEDS ORDERED: ePHEDrine SULFATE/0.9% NACL/PF 50 MG/5 ML SYRINGE IV ONE (21:31)
[2021-05-17] MEDS ORDERED: OXYTOCIN 30 UNITS/500 ML NS BAG IV ONE (21:31)
[2021-05-17] MEDS ORDERED: HYDROmorphone PCA 10 MG/50 ML BAG IV PRN (22:25)
[2021-05-17] MEDS ORDERED: NALOXONE 0.4 MG/ML 1 ML VIAL IV PRN (22:28)
[2021-05-17] MEDS ORDERED: diphenhydrAMINE 50 MG CAP PO PRN (22:28)
[2021-05-17] MEDS ORDERED: METOCLOPRAMIDE 5 MG/ML 2 ML VIAL IVP PRN (22:28)
[2021-05-17] MEDS ORDERED: diphenhydrAMINE 25 MG CAP PO PRN (22:28)
[2021-05-17] MEDS ORDERED: ONDANSETRON 4 MG/2 ML VIAL IVP PRN (22:28)
[2021-05-17] MEDS ORDERED: OXYTOCIN 30 UNITS/500 ML NS 30 UNIT in SALINE 1 500ML.BAG IV SCH (22:28)
[2021-05-17] MEDS ORDERED: ZOLPIDEM 5 MG TAB PO PRN (22:28)
[2021-05-17] MEDS ORDERED: diphenhydrAMINE 50 MG/ML 1 ML VIAL IVP PRN ×2 (22:28)
--- NOTE | 2021-05-17 22:42 | P.OP ---
Date of Procedure: 05/17/21 Preoperative Diagnosis: Twin gestation at 36-2/7 weeks, preeclampsia with severe features, history of 3, family status complete Postoperative Diagnosis: Same Procedure(s) Performed: Repeat section with tubal ligation Anesthesia: spinal Surgeon: Shruthi Herrera [employer] #1: Raven [employer] Estimated Blood Loss (ml): 700 IV fluids (ml): 1,050 Urine output (ml): 150 Pathology: other (Placenta) Condition: stable Disposition: PACU Indications for Procedure: 41-year-old at 36-2/7 weeks with known dye dye twin gestation presents with severe headache, nausea vomiting, right upper quadrant pain. Patient had elevated blood pressures on admission 150s over 90s, 140s over 90s. Patient had preeclampsia labs with elevated protein creatinine ratio, from a second opinion noted with platelets being 128. Patient was counseled on given diagnosis of preeclampsia with severe features, patient stated understanding and wished to proceed. Operative Findings: Normal uterus tubes and ovaries were appreciated, infant a delivered at 2150, weight of 5 pounds 9.2 ounces, Apgars of 8 and 9 at one and 5 minutes respectively. B delivered at 2151, 6 lbs. 10 oz. Apgars of 8 and 9 at one and 5 minutes respectively. Description of Procedure: Patient was taken back to the operating suite where spinal anesthesia was found to be adequate by the anesthesia department. She was prepped and draped in normal sterile fashion in the dorsal supine position. A Pfannenstiel skin incision was made with the scalpel and carried through the underlying layer fascia. The fascia was then incised in the midline and extended laterally. The superior aspect of the fascial incision was then grasped kimberley clamps, elevated and underlying rectus muscles dissected off sharply. Attention was then turned to the inferior aspect of the fascial incision which was grasped kimberley clamps, elevated and underlying rectus muscles dissected off sharply. The rectus muscles were in the midline, the peritoneum was identified and entered. This incision was then extended superiorly and inferiorly with good visualization the bladder. The bladder blade was then inserted into the pelvis. Hysterotomy incision was made with the scalpel, and amniotomy was performed, Infant A was encountered in a vertex presentation and delivered in the usual fashion. The umbilical cord was doubly clamped and cut. Amniotomy was performed performed on B's was encountered in the transverse presentation, it was converted to a vertex presentation and delivered in the usual fashion. The umbilical cord was doubly clamped and cut. Cord blood was then taken from both. The placentas was delivered manually and the uterus was cleared of all clots and debris. Uterus was then exteriorized from the abdomen and hysterotomy incision was closed 0 Vicryl in a running locked fashion. Hemostasis was appreciated. The Filshie clip applicator was applied to the right fallopian tube, followed by the left fallopian tube good occlusion was noted bilaterally. The uterus was returned to the abdomen and the gutters were cleared of all clots and debris. The hysterotomy incision was noted to be hemostatic. The rectus muscles were then loosely reapproximated. The rectus muscles were inspected and found to be hemostatic. The fascia was closed 0 Vicryl in a running fashion from one lateral edge the midline and the other lateral edge the midline. Subcutaneous tissue was noted to be hemostatic and closed with 3-0 Vicryl. The skin was then closed with 4-0 Vicryl in a subcuticular fashion. Steri-Strips and sterile dressings were applied. All counts were noted be correct 2. Patient and infants tolerated delivery well, infants were taken to the nursery for evaluation.
--- NOTE | 2021-05-17 22:43 | P.HPOB ---
History of Present Illness H&P Date: 05/17/21 Chief Complaint: Twin gestation 36 weeks, preeclampsia with severe features This is a 41-year-old 8 para 3043 with known twin gestation (di-di) at 36-2/7 weeks. EDC of 06/12/21 based on 16 week ultrasound. Patient presents to OB triage with complaints of severe headache and right upper quadrant pain. Patient has been receiving routine care since the second trimester. Patient states she found out she was with twins around 16 weeks when she presented to labor to department with complaints of headache, right upper quadrant pain. Patient states the headache is severe and in the back of her head. Patient also complains of nausea, vomiting, right upper quadrant pain. Patient did undergo maternity 21 testing as she is advanced maternal age, negative genetic screening. She was diagnosed with gestational diabetes during this with a 1 hour gestational diabetes screen of 160, she subsequent failed her 3 hour. She has been diet controlled. Patient has been struggling with sciatica, low back pain throughout the . Patient has been receiving steroid injections for this. She in addition is noting carpal tunnel symptoms. Prior ultrasound revealed good interval growth of these twins, both boys, both transverse presentation. Placentas were noted to be anterior, posterior. Patient states she has had 3 prior C-sections. Upon questioning she states there was some scar tissue noted at her last and the physician states he removed it. Patient states she desires tubal ligation with this delivery. Patient does note good movement, she denies contractions. She denies loss of fluid, vaginal bleeding. On bloodwork this patient has a blood type of O+, rubella status immune, RPR nonreactive, B surface antigen negative, HIV negative. Review of Systems Constitutional: Denies chills, Denies fatigue, Denies fever Ears, nose, mouth and throat: Reports headache Cardiovascular: Reports leg edema Respiratory: Denies dyspnea Gastrointestinal: Reports nausea, Reports vomiting, Denies constipation, Denies diarrhea Genitourinary: Reports Musculoskeletal: Reports as per HPI Past Medical History Additional Past Medical History / Comment(s): Hx Childhood Asthma, now resolved. Hx Cervical Cancer in 2008. Currently 34 weeks prgnant with twin boys. Currently on bedrest with bathroom privledges. Current Diet Controlled Gestational Diabetes. Bilateral Carpal Tunnel. History of Any Multi-Drug Resistant Organisms: None Reported Past Surgical History: Section Past Anesthesia/Blood Transfusion Reactions: No Reported Reaction Smoking Status: Never smoker Medications and Allergies Home Medications Medication Instructions Recorded Confirmed Type Acetaminophen Tab [Tylenol Tab] 1,000 mg PO Q6HR PRN 05/11/21 05/11/21 History Omeprazole [PriLOSEC] 20 mg PO AC-BID 05/11/21 05/11/21 History Pnv No.95/Ferrous Fum/Folic AC 1 tab PO DAILY 05/11/21 05/11/21 History [ Multivitamin Tablet] Allergies Allergy/AdvReac Type Severity Reaction Status Date / Time morphine Allergy Rash/Hives Verified 05/11/21 22:00 Exam Osteopathic Statement: *. No significant issues noted on an osteopathic structural exam other than those noted in the History and Physical/Consult. Intake and Output 05/17/21 05/17/21 05/17/21 06:59 14:59 22:59 Other: Weight 89.499 kg Physical exam is performed in this date in general this is a female in obvious discomfort, patient has a short over her eyes stating her headache is so bad she can't look at me focused neurologic exam is negative, heart has a regular rate and rhythm, breathing is noted to nonlabored, abdomen is gravid, cervical exam is deferred for myself, RN did check her cervix and she was noted to be 1 cm, heart tones are intermittent as there is gross movement, no contractions are appreciated. Results Result Diagrams: 05/17/21 20:20 05/17/21 20:20 Abnormal Lab Results - Last 24 Hours (Table) 05/17/21 05/17/21 05/17/21 Range/Units 20:15 20:20 20:20 MCV 79.0 L (80.0-100.0) fL RDW 16.3 H (11.5-15.5) % Plt Count 128 L (150-450) k/uL Lactate Dehydrogenase 697 H (313-618) U/L U Random Total Protein 15 H (<12) mg/dL Assessment and Plan (1) Twin gestation in third trimester Current Visit: Yes Status: Acute Code(s): O30.003 - TWIN PREG, UNSP NUM PLCNTA & AMNIO SACS, THIRD TRIMESTER SNOMED Code(s): 01212014 (2) AMA (advanced maternal age) multigravida 35+ Current Visit: Yes Status: Acute Code(s): O09.529 - SUPERVISION OF ELDERLY MULTIGRAVIDA, UNSPECIFIED TRIMESTER SNOMED Code(s): 426489144 (3) GDM (gestational diabetes mellitus) Current Visit: Yes Status: Acute Code(s): O24.419 - GESTATIONAL DIABETES MELLITUS IN , UNSP CONTROL SNOMED Code(s): 11017005 (4) Back pain Current Visit: Yes Status: Acute Code(s): M54.9 - DORSALGIA, UNSPECIFIED SNOMED Code(s): 401987629 (5) Sciatic nerve pain Current Visit: Yes Status: Acute Code(s): M54.30 - SCIATICA, UNSPECIFIED SIDE SNOMED Code(s): 48445159 (6) Preeclampsia Current Visit: Yes Status: Acute Code(s): O14.90 - UNSPECIFIED PRE- ECLAMPSIA, UNSPECIFIED TRIMESTER SNOMED Code(s): 423222365 (7) Headache Current Visit: Yes Status: Acute Code(s): R51.9 - HEADACHE, UNSPECIFIED SNOMED Code(s): 66498527 (8) Nausea & vomiting Current Visit: Yes Status: Acute Code(s): R11.2 - NAUSEA WITH VOMITING, UNSPECIFIED SNOMED Code(s): 51324426 (9) RUQ pain Current Visit: Yes Status: Acute Code(s): R10.11 - RIGHT UPPER QUADRANT PAIN SNOMED Code(s): 027321790 Plan: 41-year-old with known twin gestation at 36-2/7 weeks. Patient presents with complaints of severe headache, nausea, vomiting, right upper quadrant pain. Patient has noted elevated blood pressures 140's/ 90's. Protein creatinine ratio noted to be 0.3, platelets low at 128. Plan for repeat nikolas arean section with tubal ligation tonight. Procedures reviewed she states she does want to proceed with tubal ligation. Anesthesia is notified and into C patient.
[2021-05-17] MEDS: LACTATED RINGERS 1,000 ML IV SCH (23:08)
[2021-05-17] MEDS: MAGNESIUM SULFATE-WATER PMX 20 GM in WATER FOR INJECTION 1 500ML.BAG IV SCH (23:31)
[2021-05-18] MEDS: ACETAMINOPHEN TAB 500 MG TAB PO SCH ×5 (04:01→20:02)
[2021-05-18] MEDS: IBUPROFEN 600 MG TAB PO SCH ×4 (04:01→21:53)
[2021-05-18 06:11] LABS: Anisocytosis Slight; HCT 35.8 % (34.0-46.0); HGB 12.3 gm/dL (11.4-16.0); Hypochromasia Slight; MCH 27.6 pg (25.0-35.0); MCHC 34.3 g/dL (31.0-37.0); MCV 80.5 fL (80.0-100.0); Mean Platelet Volume 12.2; Microcytosis Slight; Poikilocytosis Moderate; RBC 4.44 m/uL (3.80-5.40); RDW 16.2 % (11.5-15.5); WBC 17.1 k/uL (3.8-10.6)
[2021-05-18 06:20] LABS: ALT 12 U/L (4-34); AST 29 U/L (14-36); African American GFR (CKD) >90 (>60 ml/min/1.73 sqM); Blood Urea Nitrogen 7 mg/dL (7-17); Non-African American GFR(CKD) >90 (>60 ml/min/1.73 sqM); Uric Acid 6.3 mg/dL (3.7-7.4)
[2021-05-18 06:58] LABS: Platelet Count 126 k/uL (150-450)
[2021-05-18] MEDS: IBUPROFEN IV 800 MG in SODIUM CHLORIDE 0.9% 250 ML IV SCH ×3 (07:47→18:10)
[2021-05-18] MEDS: LACTATED RINGERS 1,000 ML IV SCH ×3 (07:47→18:10)
[2021-05-18] MEDS: SENNOSIDES-DOCUSATE SODIUM 1 EACH TAB PO SCH (08:04)
--- NOTE | 2021-05-18 08:53 | P.PNOBGPC ---
Subjective - Subjective Interval history: The patient continues to remain at bedrest secondary to ongoing magnesium sul fate and her history of significant orthopedic issues. We will encourage her to increase mobility as the day wears on. She also reports that she continues to have some mild nausea though she did tolerate liquids this morning. Patient reports: Reports pain well controlled : doing well, in NICU Objective - Vital Signs Latest vital signs: Vital Signs Temp Pulse Resp BP Pulse Ox 05/18/21 07:58 97.6 F 78 18 145/62 97 05/18/21 07:00 62 16 136/83 05/18/21 05:59 80 16 144/93 05/18/21 05:00 64 16 125/81 99 05/18/21 03:56 77 16 127/87 98 05/18/21 03:00 98.0 F 74 16 132/85 99 05/18/21 02:00 74 16 120/67 99 05/18/21 00:45 62 16 144/89 05/18/21 00:25 98.0 F 65 16 148/84 100 05/17/21 23:55 65 16 147/87 100 05/17/21 23:25 68 16 150/90 99 05/17/21 23:10 56 L 16 177/97 100 05/17/21 22:55 55 L 16 156/93 100 05/17/21 22:40 97.9 F 60 16 154/89 100 05/17/21 22:25 65 16 150/72 100 05/17/21 21:26 97.4 F L 78 16 170/78 100 Intake and Output 05/17/21 05/18/21 05/18/21 22:59 06:59 14:59 Intake Total 425 Output Total 1999 300 Balance -1999 125 Intake: Intake, IV Titration 425 Amount Ibuprofen IV 800 mg In 250 Sodium Chloride 0.9% 250 ml @ 500 mls/hr IV Q6HR [facility] Rx#:[id number] Lactated Ringers 1,000 ml 125 @ 125 mls/hr IV .Q8H [facility] Rx#:[id number] Magnesium Sulfate-Water 50 Pmx 20 gm In Water For Injection 1 500ml.bag @ 2 GM/HR 50 mls/hr IV .Q10H [facility] Rx#:[id number] Output: Urine 1999 Other: Voiding Method Indwelling Catheter Indwelling Catheter Weight 89.499 kg - Exam Extremities: Present: normal Abdomen: Present: normal appearance, soft. Absent: distention, tenderness Incision: Present: normal, dry, intact Uterus: Present: normal, firm (Uterine fundus is tonic and properly tender just below the umbilicus.) - Labs Labs: Abnormal Lab Results - Last 24 Hours (Table) 05/17/21 05/17/21 05/17/21 Range/Units 20:15 20:20 20:20 WBC (3.8-10.6) k/uL MCV 79.0 L (80.0-100.0) fL RDW 16.3 H (11.5-15.5) % Plt Count 128 L (150-450) k/uL Lactate Dehydrogenase 697 H (313-618) U/L U Random Total Protein 15 H (<12) mg/dL 05/18/21 Range/Units 05:37 WBC 17.1 H (3.8-10.6) k/uL MCV (80.0-100.0) fL RDW 16.2 H (11.5-15.5) % Plt Count 126 L (150-450) k/uL Lactate Dehydrogenase (313-618) U/L U Random Total Protein (<12) mg/dL Assessment and Plan (1) Status post section Current Visit: Yes Status: Acute Code(s): Z98.891 - HISTORY OF UTERINE SCAR FROM PREVIOUS SURGERY SNOMED Code(s): 867164197 (2) Preeclampsia Current Visit: Yes Status: Acute Code(s): O14.90 - UNSPECIFIED PRE-ECL AMPSIA, UNSPECIFIED TRIMESTER SNOMED Code(s): 240383012 Plan: We will plan to continue magnesium sulfate for 24 hours until approximately 2300 hrs. tonight. The Mccauley catheter may remain in place if necessary until then as the patient has only limited mobility secondary to her orthopedic issues. 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 I have encouraged the patient to attempt to ambulate. She additionally can have a regular diet when she feels ready. Vital signs are currently stable though we will have to manage her blood pressure once the magnesium sulfate is discontinued.
[2021-05-18] MEDS: MAGNESIUM SULFATE-WATER PMX 20 GM in WATER FOR INJECTION 1 500ML.BAG IV SCH ×2 (09:40→18:08)
[2021-05-18] MEDS: PRENATAL VIT-IRON-FOLIC ACID 1 EACH CAP PO SCH (09:57)
[2021-05-18] MEDS: SIMETHICONE 80 MG CHEWABLE PO PRN (20:03)
[2021-05-19] MEDS: SENNOSIDES-DOCUSATE SODIUM 1 EACH TAB PO SCH ×3 (01:30→20:07)
[2021-05-19] MEDS: IBUPROFEN 600 MG TAB PO SCH ×4 (06:44→20:06)
[2021-05-19] MEDS: SIMETHICONE 80 MG CHEWABLE PO PRN (06:44)
--- NOTE | 2021-05-19 08:29 | P.PNOBGPC ---
Subjective - Subjective Patient reports: Reports appetite normal, Reports voiding normally, Reports pain well controlled, Reports ambulating normally (With assistance secondary to ongoing orthopedic issues.) : doing well, in NICU Objective - Vital Signs Latest vital signs: Vital Signs Temp Pulse Resp BP Pulse Ox 05/19/21 05:18 98.0 F 60 16 130/80 05/19/21 01:18 98.0 F 64 16 132/79 05/18/21 22:00 98.1 F 60 16 131/78 05/18/21 20:00 97.9 F 61 16 140/87 05/18/21 18:00 96.7 F L 73 18 129/77 05/18/21 16:00 97.7 F 61 18 129/83 100 05/18/21 13:59 97.7 F 60 18 134/87 99 05/18/21 11:47 97.7 F 58 L 18 128/78 98 05/18/21 09:50 97.6 F 62 16 117/80 97 Intake and Output 05/18/21 05/19/21 05/19/21 22:59 06:59 14:59 Intake Total 423.333 Output Total 1750 900 Balance -1326.667 -900 Intake: Intake, IV Titration 423.333 Amount Magnesium Sulfate-Water 423.333 Pmx 20 gm In Water For Injection 1 500ml.bag @ 2 GM/HR 50 mls/hr IV .Q10H [facility] Rx#:[id number] Output: Urine 1750 900 Other: # Voids 1 - Exam Extremities: Present: normal Abdomen: Present: normal appearance, soft. Absent: distention, tenderness Incision: Present: normal, dry, intact Uterus: Present: normal, firm (The uterine fundus as tonic and appropriately tender at the umbilicus.) Assessment and Plan (1) Status post section Current Visit: Yes Status: Acute Code(s): Z98.891 - HISTORY OF UTERINE SCAR FROM PREVIOUS SURGERY SNOMED Code(s): 229412713 (2) Preeclampsia Current Visit: Yes Status: Acute Code(s): O14.90 - UNSPECIFIED PRE- ECLAMPSIA, UNSPECIFIED TRIMESTER SNOMED Code(s): 501428174 Plan: Continue routine and postoperative care. I have encouraged the patient to ambulate more routinely as possible with her orthopedic concerns. She is otherwise the on a regular diet and performing all other activities of daily living. As the 's remain in the nursery, the patient will likely remain until there released or postoperative day #4 at which time of discharge will be required.
[2021-05-19] MEDS: LACTATED RINGERS 1,000 ML IV SCH (09:40)
[2021-05-19] MEDS: PRENATAL VIT-IRON-FOLIC ACID 1 EACH CAP PO SCH (09:41)
[2021-05-19] MEDS: ACETAMINOPHEN TAB 500 MG TAB PO SCH ×2 (09:45→15:06)
[2021-05-20] MEDS: ACETAMINOPHEN TAB 500 MG TAB PO SCH ×5 (00:59→21:25)
[2021-05-20] MEDS: IBUPROFEN IV 800 MG in SODIUM CHLORIDE 0.9% 250 ML IV SCH ×2 (01:05→10:24)
[2021-05-20] MEDS: LACTATED RINGERS 1,000 ML IV SCH ×2 (01:06→08:37)
[2021-05-20] MEDS: IBUPROFEN 600 MG TAB PO SCH ×4 (04:42→23:53)
[2021-05-20] MEDS: SIMETHICONE 80 MG CHEWABLE PO PRN ×2 (04:50→19:27)
[2021-05-20] MEDS: SENNOSIDES-DOCUSATE SODIUM 1 EACH TAB PO SCH ×2 (07:45→19:27)
--- NOTE | 2021-05-20 09:22 | P.PNOBGPC ---
Subjective - Subjective Patient reports: Reports appetite normal, Reports voiding normally, Reports pain well controlled, Reports ambulating normally : doing well, in NICU Objective - Vital Signs Latest vital signs: Vital Signs Temp Pulse Resp BP Pulse Ox 05/20/21 07:47 98.8 F 78 16 106/69 97 05/20/21 05:00 97.6 F 57 L 16 141/68 05/20/21 00:59 140/88 05/20/21 00:00 98.1 F 63 18 148/89 97 05/19/21 20:00 98.6 F 70 18 143/82 96 05/19/21 17:00 98.2 F 60 16 138/82 05/19/21 13:00 98.2 F 58 L 16 148/84 Intake and Output 05/19/21 05/20/21 05/20/21 22:59 06:59 14:59 Other: # Voids 3 2 2 - Exam Extremities: Present: normal Abdomen: Present: normal appearance, soft. Absent: distention, tenderness Incision: Present: normal, dry, intact Uterus: Present: normal, firm Assessment and Plan (1) Status post section Current Visit: Yes Status: Acute Code(s): Z98.891 - HISTORY OF UTERINE SCAR FROM PREVIOUS SURGERY SNOMED Code(s): 138548848 (2) Preeclampsia Current Visit: Yes Status: Acute Code(s): O14.90 - UNSPECIFIED PRE- ECLAMPSIA, UNSPECIFIED TRIMESTER SNOMED Code(s): 636209687 Plan: Continue routine and postoperative care. I have again encouraged the patient to ambulate routinely in the hallways as able. She will likely continue to remain in the hospital as long as insurance allows as the babies remain in the nursery with difficulties with feeding primarily.
[2021-05-20] MEDS: PRENATAL VIT-IRON-FOLIC ACID 1 EACH CAP PO SCH (10:20)
[2021-05-21 04:31] VITALS: PULSE 60
[2021-05-21] MEDS: ACETAMINOPHEN TAB 500 MG TAB PO SCH ×2 (04:32→11:00)
[2021-05-21] MEDS: IBUPROFEN 600 MG TAB PO SCH (06:54)
[2021-05-21] MEDS: SIMETHICONE 80 MG CHEWABLE PO PRN (06:55)
[2021-05-21] MEDS: SENNOSIDES-DOCUSATE SODIUM 1 EACH TAB PO SCH (08:33)
[2021-05-21 09:37] VITALS: BP 126/82; RESP 14; TEMP 98.2
--- NOTE | 2021-05-21 10:03 | P.DS ---
Providers Date of admission: 05/17/21 21:04 Expected date of discharge: 05/21/21 Attending physician: Christiano Adan Primary care physician: Stated None - Discharge Diagnosis(es) (1) Status post section Current Visit: Yes Status: Acute (2) Preeclampsia Current Visit: Yes Status: Acute Hospital Course: Patient is a 41-year-old 8 para 3043 with twin gestation, diamniotic/dichorionic, is admitted at 36-2/7 weeks based on 16 week ultrasound. She presents to labor and delivery with complaints of severe headaches as well as right upper quadrant pain. She has had significant orthopedic problems during her and otherwise has been seen for those concerns throughout including some injections for radiculopathy. She additionally has been found to have gestational diabetes with good sugar control during the and reassuring testing. On labor and delivery, she was noted to have increasing and significantly labile blood pressures and the diagnosis of preeclampsia was made. She was therefore taken to the operating room where she underwent a repeat low transverse section with intraoperative bilateral tubal occlusion with Filshie clips and an incompetent fashion. She was delivered of a viable 5 lbs. 9 oz. baby boy with Apgars of 8 at 1 minute 9 at 5 minutes followed by a viable 6 lbs. 10 oz. baby boy with Apgars of 8 at 1 minute and 9 at 5 minutes. Her course has been essentially unremarkable. She did have 24 hours of magnesium sulfate following delivery. She continues to have some moderate orthopedic issues but is otherwise ambulating regularly. As her infants remain in the nursery for ongoing issues with feeding as well as some temperature control, she remained in the hospital until the morning of postoperative day number for which time she was deemed stable for discharge. She was discharged home to follow-up in the office in 2 weeks for an incision check and 6 weeks routinely. Discharge instructions included calling for any significantly increased bleeding or foul-smelling lochia, significantly increased fever abdominal pain, perineal complaints, breast complaints, incisional complaints, or anything else that concerned her. She was additionally instructed to have nothing in the vagina for at least 6 weeks time to include intercourse and to abstain from any heavy lifting over the same period of time. She was last instructed to do no driving until off of all pain medications or 2 weeks' time, whichever comes first. She understood all of her instructions and agrees to follow up as noted above. Discharge medications included continue vitamins as she has opted to attempt to breast-feed. She was otherwise to use [id number] analgesic pain medications but was additionally provided with a prescription for Amo 5/325 mg, 1-2 by mouth every 6 hours when necessary pain, #20 dispensed with no refills. Maternal blood type is O+ and rubella status is immune. Discharge hemoglobin and hematocrit were 12.3 and 35.8 respectively. Procedures: #1. Repeat low transverse section #2. Intraoperative bilateral tubal occlusion with Filshie clips #3. Magnesium sulfate seizure prophylaxis Patient Condition at Discharge: Stable Plan - Discharge Summary Discharge Rx Participant: No New Discharge Prescriptions: No Action Acetaminophen Tab [Tylenol Tab] 1,000 mg PO Q6HR PRN PRN Reason: Headache Pnv No.95/Ferrous Fum/Folic AC [ Multivitamin Tablet] 1 tab PO DAILY Omeprazole [PriLOSEC] 20 mg PO AC-BID Discharge Medication List Acetaminophen Tab [Tylenol Tab] 1,000 mg PO Q6HR PRN 05/11/21 [History] Omeprazole [PriLOSEC] 20 mg PO AC-BID 05/11/21 [History] Pnv No.95/Ferrous Fum/Folic AC [ Multivitamin Tablet] 1 tab PO DAILY 05/11/21 [History] Follow up Appointment(s)/Referral(s): Christiano Adan MD [STAFF PHYSICIAN] - 2 Weeks Discharge Disposition: HOME SELF-CARE
== END 2021-05-21 11:09 | disposition home or self-care (01) | DRG 785 ==
LOC: FBPOP 19:44 → 4FBP 21:04
PROVIDERS: ADMIT Obstetrics & Gynecology Obstetrics; ATTEND Obstetrics & Gynecology
PROC: 0UB70ZZ Excision of Bilateral Fallopian Tubes, Open Approach (ICD-10-PCS; 2021-05-17)
PROC: 10D00Z1 Extraction of Products of Conception, Low, Open Approach (ICD-10-PCS; principal; 2021-05-17 21:30)
DX: O14.14 Severe pre-eclampsia complicating childbirth (principal); O15.1 Eclampsia complicating labor; O24.429 Gestational diabetes mellitus in childbirth, unspecified control; O30.003 Twin pregnancy, unspecified number of placenta and unspecified number of amniotic sacs, third trimester; O34.211 Maternal care for low transverse scar from previous cesarean delivery; O99.892 Other specified diseases and conditions complicating childbirth; M54.40 Lumbago with sciatica, unspecified side; M54.10 Radiculopathy, site unspecified; Z30.2 Encounter for sterilization; Z37.2 Twins, both liveborn; Z3A.36 36 weeks gestation of pregnancy; Z85.41 Personal history of malignant neoplasm of cervix uteri
CPT/HCPCS: 81003; 82565; 82570; 83615; 84156; 84450; 84460; 84520; 84550; 85025; 85027; 85384; 85610; 85730; 88307; 96360; 96365; 99215

== ENCOUNTER 2021-06-02 14:10 | Inpatient (IN) | payer OTHER ==
[2021-06-02] MEDS ORDERED: diphenhydrAMINE 50 MG/ML 1 ML VIAL IVP STA (14:34)
[2021-06-02] MEDS ORDERED: PROCHLORPERAZINE 5 MG TAB PO STA (14:34)
[2021-06-02] MEDS ORDERED: MAGNESIUM SULFATE-D5W PMX 2 GM in DEXTROSE/WATER 1 100ML.BAG IVPB ONE (14:45)
[2021-06-02] MEDS ORDERED: MAGNESIUM SULFATE-WATER PMX 4 GM in WATER FOR INJECTION 1 100ML.BAG IVPB STA (14:51)
[2021-06-02 14:52] LABS: Anisocytosis Slight; Basophils # (A) 0.1 k/uL (0-0.2); Basophils % (A) 1 %; Eosinophils # (A) 0.3 k/uL (0-0.7); Eosinophils % (A) 4 %; HCT 42.7 % (34.0-46.0); HGB 14.1 gm/dL (11.4-16.0); Lymphocytes # (A) 1.8 k/uL (1.0-4.8); Lymphocytes % (A) 28 %; MCH 27.7 pg (25.0-35.0); MCHC 33.1 g/dL (31.0-37.0); MCV 83.8 fL (80.0-100.0); Mean Platelet Volume 8.4; Monocytes # (A) 0.2 k/uL (0-1.0); Monocytes % (A) 4 %; Neutrophils # (A) 3.9 k/uL (1.3-7.7); Neutrophils % (A) 61 %; Platelet Count 240 k/uL (150-450); RDW 17.2 % (11.5-15.5); WBC 6.5 k/uL (3.8-10.6)
[2021-06-02 14:56] LABS: Appearance,Urine Clear (Clear); Bacteria,Urine Rare /hpf; Bilirubin,Urine Negative (Negative); Blood,Urine Large (Negative); Color,Urine Yellow; Glucose,Urine (UA) Negative (Negative); Ketones,Urine Negative (Negative); Leukocyte Esterase,Urine Small (Negative); Mucus,Urine Rare /hpf; Nitrite,Urine Negative (Negative); PH, Urine 5.5 (5.0-8.0); Protein,Urine Negative (Negative); RBC,Urine 3 /hpf (0-5); Specific Gravity,Urine 1.011 (1.001-1.035); Squamous Epithelial Cell,Urine <1 /hpf (0-4); Urobilinogen,Urine <2.0 mg/dL (<2.0); WBC,Urine 2 /hpf (0-5)
[2021-06-02 15:00] LABS: ALT 21 U/L (4-34); AST 28 U/L (14-36); African American GFR (CKD) >90 (>60 ml/min/1.73 sqM); Albumin 3.9 g/dL (3.5-5.0); Alkaline Phosphatase 159 U/L (38-126); Anion Gap 8 mmol/L; Blood Urea Nitrogen 12 mg/dL (7-17); Calcium 9.1 mg/dL (8.4-10.2); Carbon Dioxide 21 mmol/L (22-30); Chloride 109 mmol/L (98-107); Glucose 118 mg/dL (74-99); Non-African American GFR(CKD) >90 (>60 ml/min/1.73 sqM); Potassium 4.1 mmol/L (3.5-5.1); Sodium 138 mmol/L (137-145); Total Bilirubin 0.6 mg/dL (0.2-1.3); Total Protein 6.6 g/dL (6.3-8.2)
--- NOTE | 2021-06-02 16:00 | CT ---
EXAMINATION TYPE: CT brain wo con DATE OF EXAM: 06/02/2021 COMPARISON: None INDICATION: Headache for 1 week with visual disturbance and hand tingling. DLP: 1094.4 mGycm, Automated exposure control for dose reduction was used. CONTRAST: None CT of the brain is performed utilizing 3 mm thick sections through the posterior fossa and 3 mm thick sections through the remaining calvarium. Study is performed within 24 hours of arrival to the hosp ital. No abnormal hyperdensity is present to suggest an acute intracranial hemorrhage. No mass lesion is evident. No acute infarcts are evident. Ventricles and sulci are appropriate for the patient age. Paranasal sinuses and mastoid air cells within the [id number] are clear. Left subclavian deviation is noted. Some left septal spurring is evident. IMPRESSIONS: 1. No acute intracranial process.
[2021-06-02] MEDS ORDERED: HYDROmorphone 1 MG/ML 1 ML SYRINGE IVP STA (16:01)
[2021-06-02] MEDS ORDERED: NALOXONE 0.4 MG/ML 1 ML VIAL IV PRN (16:28)
--- NOTE | 2021-06-02 16:28 | ED ---
Headache HPI - General Chief Complaint: Headache Stated Complaint: Headache Time Seen by Provider: 06/02/21 14:21 Mode of arrival: ambulatory Limitations: no limitations - History of Present Illness Initial Comments: Patient presents to the emerge department with a headache. She had a 1 week ago. She delivered at 36 weeks because of preeclampsia. She states she has been having a progressively worsening headache for the last few days. Her blood pressure is elevated as well. She has no chest or belly or back pain. The headache is bilateral and throbbing. Nothing makes it go away. She denies injuries. She has had no sick a be. She has no neck pain or stiffness. She has no vision or hearing changes. She has edema in the legs which is improving since her . - Related Data Home Medications Medication Instructions Recorded Confirmed Pnv No.95/Ferrous Fum/Folic AC 1 tab PO DAILY 05/11/21 06/02/21 [ Multivitamin Tablet] Acetaminophen Tab [Tylenol] 650 mg PO Q4H PRN 06/02/21 06/02/21 Omeprazole 40 mg PO DAILY PRN 06/02/21 06/02/21 Allergies Allergy/AdvReac Type Severity Reaction Status Date / Time morphine Allergy Rash/Hives Verified 06/02/21 15:03 Review of Systems ROS Statement: Those systems with pertinent positive or pertinent negative responses have been documented in the HPI. ROS Other: All systems not noted in ROS Statement are negative. Past Medical History Additional Past Medical History / Comment(s): Hx Childhood Asthma, now resolved. Hx Cervical Cancer in 2008. Currently 34 weeks prgnant with twin boys. Currently on bedrest with bathroom privledges. Current Diet Controlled Gestational Diabetes. Bilateral Carpal Tunnel. History of Any Multi-Drug Resistant Organisms: None Reported Past Surgical History: Section Past Anesthesia/Blood Transfusion Reactions: No Reported Reaction Past Psychological History: No Psychological Hx Reported Smoking Status: Never smoker Past Alcohol Use History: None Reported Past Drug Use History: None Reported General Exam Limitations: no limitations General appearance: alert, in no apparent distress Head exam: Present: atraumatic, normocephalic, normal inspection Eye exam: Present: normal appearance, PERRL, EOMI. Absent: scleral icterus, conjunctival injection, periorbital swelling ENT exam: Present: normal exam, mucous membranes moist Neck exam: Present: normal inspection. Absent: tenderness, meningismus, lymphadenopathy Respiratory exam: Present: normal lung sounds bilaterally. Absent: respiratory distress, wheezes, rales, rhonchi, stridor Cardiovascular Exam: Present: regular rate, normal rhythm, normal heart sounds. Absent: systolic murmur, diastolic murmur, rubs, gallop, clicks GI/Abdominal exam: Present: soft, normal bowel sounds. Absent: distended, tenderness, guarding, rebound, rigid Extremities exam: Present: normal inspection, full ROM, normal capillary refill. Absent: tenderness, pedal edema, joint swelling, calf tenderness Back exam: Present: normal inspection Neurological exam: Present: alert, oriented X3, CN II-XII intact Psychiatric exam: Present: normal affect, normal mood Skin exam: Present: warm, dry, intact, normal color. Absent: rash Course Vital Signs 06/02/21 06/02/21 06/02/21 14:12 15:01 15:14 Temperature 98.3 F Pulse Rate 72 66 68 Respiratory 18 18 18 Rate Blood Pressure 133/90 139/103 129/92 O2 Sat by Pulse 97 98 99 Oximetry 06/02/21 15:58 Temperature Pulse Rate 59 L Respiratory 18 Rate Blood Pressure 145/93 O2 Sat by Pulse 98 Oximetry Medical Decision Making - Medical Decision Making Patient presents with a progressively worsening headache. Her blood pressure is elevated. I am concern for worsening preeclampsia. I ordered IV magnesium. CT head is negative. She has not had any improvement of her symp toms after IV Dilaudid and magnesium. She will be admitted to the hospital. - Lab Data Result diagrams: 06/02/21 14:37 06/02/21 14:37 Lab Results 06/02/21 06/02/21 06/02/21 Range/Units 14:37 14:37 14:37 WBC 6.5 (3.8-10.6) k/uL RBC 5.10 (3.80-5.40) m/uL Hgb 14.1 (11.4-16.0) gm/dL Hct 42.7 (34.0-46.0) % MCV 83.8 (80.0-100.0) fL MCH 27.7 (25.0-35.0) pg MCHC 33.1 (31.0-37.0) g/dL RDW 17.2 H (11.5-15.5) % Plt Count 240 (150-450) k/uL MPV 8.4 Neutrophils % 61 % Lymphocytes % 28 % Monocytes % 4 % Eosinophils % 4 % Basophils % 1 % Neutrophils # 3.9 (1.3-7.7) k/uL Lymphocytes # 1.8 (1.0-4.8) k/uL Monocytes # 0.2 (0-1.0) k/uL Eosinophils # 0.3 (0-0.7) k/uL Basophils # 0.1 (0-0.2) k/uL Anisocytosis Slight Sodium 138 (137-145) mmol/L Potassium 4.1 (3.5-5.1) mmol/L Chloride 109 H (98-107) mmol/L Carbon Dioxide 21 L (22-30) mmol/L Anion Gap 8 mmol/L BUN 12 (7-17) mg/dL Creatinine 0.65 (0.52-1.04) mg/dL Est GFR (CKD-EPI)AfAm >90 (>60 ml/min/1.73 sqM) Est GFR (CKD-EPI)NonAf >90 (>60 ml/min/1.73 sqM) Glucose 118 H (74-99) mg/dL Calcium 9.1 (8.4-10.2) mg/dL Total Bilirubin 0.6 (0.2-1.3) mg/dL AST 28 (14-36) U/L ALT 21 (4-34) U/L Alkaline Phosphatase 159 H (38-126) U/L Total Protein 6.6 (6.3-8.2) g/dL Albumin 3.9 (3.5-5.0) g/dL Urine Color Yellow Urine Appearance Clear (Clear) Urine pH 5.5 (5.0-8.0) Ur Specific [place] 1.011 (1.001-1.035) Urine Protein Negative (Negative) Urine Glucose (UA) Negative (Negative) Urine Ketones Negative (Negative) Urine Blood Large H (Negative) Urine Nitrite Negative (Negative) Urine Bilirubin Negative (Negative) Urine Urobilinogen <2.0 (<2.0) mg/dL Ur Leukocyte Esterase Small H (Negative) Urine RBC 3 (0-5) /hpf Urine WBC 2 (0-5) /hpf Ur Squamous Epith Cells <1 (0-4) /hpf Urine Bacteria Rare H (None) /hpf Urine Mucus Rare H (None) /hpf Critical Care Time Critical Care Time: Yes Total Critical Care Time: 35 Disposition Clinical Impression: Pre-eclampsia Disposition: ADMITTED IP TO THIS HOSP Condition: Fair Is patient prescribed a controlled substance at d/c from ED?: No Referrals: None,Stated [Primary Care Provider] - 1-2 days
[2021-06-02] MEDS ORDERED: IBUPROFEN IV 800 MG in SODIUM CHLORIDE 0.9% 250 ML IV ONE (17:00)
[2021-06-02] MEDS ORDERED: CALCIUM GLUCONATE 1 GM/10 ML VIAL IV PRN (17:35)
--- NOTE | 2021-06-02 17:46 | P.HPOB ---
History of Present Illness H&P Date: 06/02/21 Chief Complaint: headache 41-year-old status post repeat section for twin gestation and preeclampsia partially 1 week ago presents to the hospital with complaints of increasing headache over the last 4 days. Patient notes the headache to be severe nature. She states her neck started hurting after the headache in addition. She did not take any medication at home for the headache. Patient was evaluated in the emergency department given Dilaudid and a magnesium bolus with no relief of her headache. Patient underwent preeclampsia labs which were normal in nature. No protein was appreciated in her urine dip. Review of Systems Constitutional: Reports fatigue, Denies chills, Denies fever Ears, nose, mouth and throat: Reports headache Cardiovascular: Denies leg edema Respiratory: Denies dyspnea Gastrointestinal: Reports nausea, Denies vomiting Genitourinary: Denies Past Medical History Additional Past Medical History / Comment(s): Hx Childhood Asthma, now resolved. Hx Cervical Cancer in 2008. Currently 34 weeks prgnant with twin boys. Currently on bedrest with bathroom privledges. Current Diet Controlled Gestational Diabetes. Bilateral Carpal Tunnel. History of Any Multi-Drug Resistant Organisms: None Reported Past Surgical History: Section Past Anesthesia/Blood Transfusion Reactions: No Reported Reaction Past Psychological History: No Psychological Hx Reported Smoking Status: Never smoker Past Alcohol Use History: None Reported Past Drug Use History: None Reported Medications and Allergies Home Medications Medication Instructions Recorded Confirmed Type Pnv No.95/Ferrous Fum/Folic AC 1 tab PO DAILY 05/11/21 06/02/21 History [ Multivitamin Tablet] Acetaminophen Tab [Tylenol] 650 mg PO Q4H PRN 06/02/21 06/02/21 History Omeprazole 40 mg PO DAILY PRN 06/02/21 06/02/21 History Allergies Allergy/AdvReac Type Severity Reaction Status Date / Time morphine Allergy Rash/Hives Verified 06/02/21 15:03 Exam Osteopathic Statement: *. No significant issues noted on an osteopathic structural exam other than those noted in the History and Physical/Consult. 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 Results Result Diagrams: 06/02/21 14:37 06/02/21 14:37 Abnormal Lab Results - Last 24 Hours (Table) 06/02/21 06/02/21 06/02/21 Range/Units 14:37 14:37 14:37 RDW 17.2 H (11.5-15.5) % Chloride 109 H (98-107) mmol/L Carbon Dioxide 21 L (22-30) mmol/L Glucose 118 H (74-99) mg/dL Alkaline Phosphatase 159 H (38-126) U/L Urine Blood Large H (Negative) Ur Leukocyte Esterase Small H (Negative) Urine Bacteria Rare H (None) /hpf Urine Mucus Rare H (None) /hpf Assessment and Plan (1) headache Current Visit: Yes Status: Acute Code(s): O90.89 - OTH COMPLICATIONS OF THE PUERPERIUM, NEC; R51.9 - HEADACHE, UNSPECIFIED SNOMED Code(s): 019439678 (2) hypertension Current Visit: Yes Status: Acute Code(s): O16.5 - UNSPECIFIED MATERNAL HYPERTENSION, COMP THE PUERPERIUM SNOMED Code(s): 36650405 Plan: 41-year-old approximately one week status post repeat section, patient presented to the emergency department this evening with complaints of worsening headache over the last 4 days. Patient is also complaining of neck pain and nausea. Patient was able to eat lunch around 12:30 with no vomiting. Patient underwent preeclampsia labs in the emergency department which were negative in nature. Blood pressures 140s to 150s over 90s. No protein was appreciated in her urine dip. Patient was begun on magnesium bolus infusion in the emergency department, maintenance dose is begun here on labor and delivery. Anesthesia has been consulted regarding possibility of spinal headache. Patient does have a history of bulging disks in her upper back, suspect this may be contributing to her headache. We'll plan when necessary labetalol for blood pressures greater than 140s over 90s. IV caldalor/Ofirmev for pain. Recheck preeclampsia labs at 6 AM.
[2021-06-02] MEDS ORDERED: LABETALOL 100 MG TAB PO ONE (18:00)
[2021-06-02] MEDS ORDERED: MAGNESIUM SULFATE-D5W PMX 1 GM in DEXTROSE/WATER 1 100ML.BAG IVPB SCH (18:00)
[2021-06-02] MEDS: MAGNESIUM SULFATE-WATER PMX 20 GM in WATER FOR INJECTION 1 500ML.BAG IV SCH (18:03)
[2021-06-02] MEDS ORDERED: ACETAMINOPHEN IV (For NPO) 1,000 MG in EMPTY BAG 1 BAG IVPB ONE (20:30)
[2021-06-03] MEDS: LACTATED RINGERS 1,000 ML IV SCH ×2 (00:21→11:36)
[2021-06-03] MEDS: MAGNESIUM SULFATE-WATER PMX 20 GM in WATER FOR INJECTION 1 500ML.BAG IV SCH (04:07)
[2021-06-03] MEDS ORDERED: IBUPROFEN 600 MG TAB PO PRN (06:04)
[2021-06-03] MEDS ORDERED: ACETAMINOPHEN TAB 500 MG TAB PO PRN (06:04)
[2021-06-03 06:29] LABS: Anisocytosis Slight; HCT 40.1 % (34.0-46.0); HGB 13.2 gm/dL (11.4-16.0); Hypochromasia Slight; MCH 27.6 pg (25.0-35.0); MCV 83.8 fL (80.0-100.0); Mean Platelet Volume 7.9; Platelet Count 241 k/uL (150-450); Poikilocytosis Slight; RBC 4.78 m/uL (3.80-5.40); RDW 17.6 % (11.5-15.5); WBC 5.5 k/uL (3.8-10.6)
[2021-06-03 06:39] LABS: ALT 18 U/L (4-34); AST 26 U/L (14-36); African American GFR (CKD) >90 (>60 ml/min/1.73 sqM); Blood Urea Nitrogen 10 mg/dL (7-17); Non-African American GFR(CKD) >90 (>60 ml/min/1.73 sqM); Uric Acid 5.2 mg/dL (3.7-7.4)
[2021-06-03 08:17] VITALS: TEMP 98.2
[2021-06-03] MEDS ORDERED: PRENATAL VIT-IRON-FOLIC ACID 1 EACH CAP PO SCH (09:00)
--- NOTE | 2021-06-03 10:52 | P.PN ---
Progress Note - Text Progress Note Date: 06/03/21 41-year-old status post repeat approximately one week ago for preeclampsia and twin gestation. Patient presented to the hospital yesterday afternoon with complaints of severe headache. Preeclampsia labs were run and found negative. Patient's initial blood pressure was noted to be elevated therefore suspicion for preeclampsia given her history. Patient underwent magnesium therapy overnight, all blood pressures have been noted to be normal. Patient states her headache is better this morning. She does have history of orthopedic issues which may be leading to this severe headache. Patient has been breast feeding her twins. Patient underwent follow-up preeclampsia labs this morning which were negative in nature. Urinary output has been good. Patient is anxious states she is feeling better and would like discharge home. I do not feel she has preeclampsia as all blood pressures have been normal, all labs have been normal. I do feel that her orthopedic issues are exacerbating her headache and she has a follow-up appointment with orthopedics on Sunday of next week. We'll plan discharge home later this afternoon pending normal blood pressures. Precautions are reviewed with patient. Patient states understanding of plan and all cautions were answered to patient's satisfaction. She does have an appointment with Dr. Bustamante next week for routine follow-up.
--- NOTE | 2021-06-03 10:57 | P.DS ---
Providers Date of admission: 06/02/21 16:46 Expected date of discharge: 06/03/21 Attending physician: Shruthi Herrera Primary care physician: Stated None - Discharge Diagnosis(es) (1) headache Current Visit: Yes Status: Acute (2) hypertension Current Visit: Yes Status: Acute Hospital Course: 41-year-old female status post repeat for twins and preeclampsia with severe features. Patient states she was doing well until about 4 days ago when a headache started. Patient states the headache became severe yesterday and she presented to the hospital. Patient received magnesium bolus, and IV Dilaudid with no change in her headache per ER physician. Patient was transferred to labor and delivery where maintenance magnesium was begun, preeclampsia labs were evaluated and found to be normal. Patient did well overnight. She did receive IV Ofirmev, and Cadalor overnight for her headache. Blood pressures have been completely normal 1 teens to 120s over 70s to 80s. Patient states her headache is improved this morning. 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 Patient does have a remote history of migraines and this seems similar to her. Patient denies nausea or vomiting this morning. She denies fevers or chills. She is anxious to get home and states she is feeling much improved from admission. Patient Condition at Discharge: Fair Plan - Discharge Summary New Discharge Prescriptions: No Action Pnv No.95/Ferrous Fum/Folic AC [ Multivitamin Tablet] 1 tab PO DAILY Omeprazole 40 mg PO DAILY PRN PRN Reason: Heartburn Acetaminophen Tab [Tylenol] 650 mg PO Q4H PRN PRN Reason: Pain Discharge Medication List Pnv No.95/Ferrous Fum/Folic AC [ Multivitamin Tablet] 1 tab PO DAILY 05/11/21 [History] Acetaminophen Tab [Tylenol] 650 mg PO Q4H PRN 06/02/21 [History] Omeprazole 40 mg PO DAILY PRN 06/02/21 [History] Follow up Appointment(s)/Referral(s): Christiano Adan MD [STAFF PHYSICIAN] - 1 Week Activity/Diet/Wound Care/Special Instructions: Preeclampsia precautions are reviewed with patient, I do not believe this patient has preeclampsia given her symptoms and overnight observation of blood pressures and labs. Patient will follow up as scheduled with Dr. Adan. Patient has a follow-up appointment with orthopedics in addition to evaluate her neck pain which precipitated her headache. She is counseled on Tylenol and Motrin as needed for discomfort. Discharge Disposition: HOME SELF-CARE
[2021-06-03 14:56] VITALS: BP 135/82; PULSE 69; RESP 14
== END 2021-06-03 14:59 | disposition home or self-care (01) | DRG 776 ==
LOC: EC 14:10 → 4FBP 16:46
PROVIDERS: ADMIT Obstetrics & Gynecology Obstetrics; ATTEND Obstetrics & Gynecology Obstetrics
DX: O16.5 Unspecified maternal hypertension, complicating the puerperium (principal); Z86.32 Personal history of gestational diabetes
CPT/HCPCS: 36415; 70450; 80053; 81001; 82565; 84450; 84460; 84520; 84550; 85025; 85027; 96365; 96375; 96376; 99291

== ENCOUNTER 2022-01-19 00:51 | Emergency (ER) | payer OTHER ==
--- NOTE | 2022-01-19 02:29 | ED ---
ENT HPI - General Chief complaint: Nausea/Vomiting/Diarrhea Stated complaint: fever, vomiting Time Seen by Provider: 01/19/22 02:02 Source: patient, RN notes reviewed Mode of arrival: ambulatory Limitations: no limitations - History of Present Illness Initial comments: Patient comes to the emergency department complaining of a runny nose, cough, subjective fever, exposed to multiple family members with similar symptomology. Cough is productive for clear sputum. Patient concerned about the possibility of COVID-19. No significant past medical history. Nonsmoker. No alcohol or drug abuse. No headache, no fever or chills, no changes in vision or hearing, no sore throat or difficulty with speech, no neck pain, no chest pain or shortness of breath, no abdominal pain, no nausea or vomiting, no changes in urination or bowel movements, no numbness or tingling, no extremity pain, no skin rashes or lesions. MD complaint: tooth pain - Related Data Home Medications Medication Instructions Recorded Confirmed Pnv No.95/Ferrous Fum/Folic AC 1 tab PO DAILY 05/11/21 06/02/21 [ Multivitamin Tablet] Acetaminophen Tab [Tylenol] 650 mg PO Q4H PRN 06/02/21 06/02/21 Omeprazole 40 mg PO DAILY PRN 06/02/21 06/02/21 Previous Rx's Medication Instructions Recorded Ondansetron Odt [Zofran Odt] 4 mg PO Q6HR PRN #20 tab 01/19/22 Allergies Allergy/AdvReac Type Severity Reaction Status Date / Time morphine Allergy Rash/Hives Verified 01/19/22 01:27 Review of Systems ROS Statement: Those systems with pertinent positive or pertinent negative responses have been documented in the HPI. ROS Other: All systems not noted in ROS Statement are negative. Past Medical History Additional Past Medical History / Comment(s): Hx Childhood Asthma, now resolved. Hx Cervical Cancer in 2008. Currently 34 weeks prgnant with twin boys. Currently on bedrest with bathroom privledges. Current Diet Controlled Gestational Diabetes. Bilateral Carpal Tunnel. History of Any Multi-Drug Resistant Organisms: None Reported Past Surgical History: Section Past Anesthesia/Blood Transfusion Reactions: No Reported Reaction Past Psychological History: No Psychological Hx Reported Smoking Status: Never smoker Past Alcohol Use History: None Reported Past Drug Use History: None Reported - Past Family History Father History Unknown: Yes General Exam - General Exam Comments Initial Comments: Patient appears very mildly ill but not toxic. Adequate peripheral perfusion. SpO2 is 100% on room air. Limitations: no limitations General appearance: alert, in no apparent distress Head exam: Present: atraumatic, normocephalic, normal inspection Eye exam: Present: normal appearance, PERRL, EOMI. Absent: scleral icterus, conjunctival injection, periorbital swelling ENT exam: Present: normal exam, normal oropharynx, mucous membranes moist, TM's normal bilaterally, normal external ear exam, other ( purulent discharge. No sinus tenderness.). Absent: mucous membranes dry Neck exam: Present: normal inspection, full ROM. Absent: tenderness, menin gismus, lymphadenopathy Respiratory exam: Present: normal lung sounds bilaterally, rhonchi (mild scattered rhonchi bilaterally.). Absent: respiratory distress, wheezes, rales, stridor, chest wall tenderness, accessory muscle use, decreased breath sounds, prolonged expiratory Cardiovascular Exam: Present: regular rate, normal rhythm, normal heart sounds. Absent: systolic murmur, diastolic murmur, rubs, gallop, clicks GI/Abdominal exam: Present: soft, normal bowel sounds. Absent: distended, tenderness, guarding, rebound, rigid Extremities exam: Present: normal inspection, full ROM, normal capillary refill. Absent: tenderness, pedal edema, joint swelling, calf tenderness Back exam: Present: normal inspection Neurological exam: Present: alert, oriented X3, CN II-XII intact Psychiatric exam: Present: normal affect, normal mood Skin exam: Present: warm, dry, intact, normal color. Absent: rash Course Vital Signs 01/19/22 01/19/22 01:24 01:26 Temperature 97.5 F L Pulse Rate 60 Respiratory 16 Rate Blood Pressure 97/67 O2 Sat by Pulse 100 Oximetry Medical Decision Making - Medical Decision Making Symptoms most consistent with a viral upper respiratory infection. We will test the patient for COVID-19. Patient has multiple family members with similar symptomology. Plan for discharge. Patient was told to return to the ER for any signs or symptoms worsen. Told to return immediately if any other problems arise. All questions answered. Treatment plan discussed. Patient in agreement Every effort has been made to ensure accuracy of this dictation. However, due to the limitations of electronic medical records and dictation devices, errors in charting still occur. - Lab Data Lab Results 01/19/22 Range/Units 02:02 Coronavirus (PCR) Not Detected (Not Detectd) Disposition Clinical Impression: Common cold Disposition: HOME SELF-CARE Condition: Good Instructions (If sedation given, give patient instructions): Upper Respiratory Infection (ED) Additional Instructions: Follow-up with your regular physician as directed. Return to the ER immediately if any symptoms worsen, new symptoms arise, or any other problems develop. Try to here to a clear liquid diet for the next 12-24 hours. Is patient prescribed a controlled substance at d/c from ED?: No Referrals: Titus Forrester [STAFF PHYSICIAN] - 01/23/22 Time of Disposition: 03:42
--- NOTE | 2022-01-19 03:01 | XR ---
EXAMINATION TYPE: XR chest 2V DATE OF EXAM: 01/19/2022 COMPARISON: NONE HISTORY: Cough. TECHNIQUE: 2 views FINDINGS: Heart and mediastinum are normal. Lungs are clear. Diaphragm is normal. Bony thorax appears normal. IMPRESSION: Normal chest.
[2022-01-19] MEDS ORDERED: ONDANSETRON ODT 4 MG TAB PO STA (03:39)
[2022-01-19 04:15] VITALS: BP 114/78; PULSE 77; RESP 19; TEMP 97.9
== END 2022-01-19 04:10 | disposition home or self-care (01) ==
LOC: EC 00:51
DX: J00 Acute nasopharyngitis [common cold] (principal); Z20.822 Contact with and (suspected) exposure to COVID-19
CPT/HCPCS: 71046; 87635; 99283

== ENCOUNTER → 2022-01-24 | Outpatient (CLI) | payer OTHER ==
[2022-01-24 14:18] LABS: Basophils # (A) 0.05 X 10*3/uL (0.00-0.10); Basophils % (A) 0.9 %; Eosinophils # (A) 0.27 X 10*3/uL (0.04-0.35); Eosinophils % (A) 4.8 %; HCT 41.6 % (37.2-46.3); HGB 13.4 g/dL (12.0-15.0); Immature Grans, Automated 0.2 %; Lymphocytes # (A) 2.19 X 10*3/uL (0.90-5.00); Lymphocytes % (A) 39.3 %; MCHC 32.2 g/dL (32.0-37.0); Mean Platelet Volume 10.7 fL (9.5-12.2); Monocytes # (A) 0.32 X 10*3/uL (0.20-1.00); Monocytes % (A) 5.7 %; NRBC Per 100 WBC 0 /100 WBCS (0.0-0.0); Neutrophils # (A) 2.73 X 10*3/uL (1.80-7.70); Neutrophils % (A) 49.1 %; Platelet Count 182 X 10*3/uL (140-440); RBC 4.62 X 10*6/uL (4.10-5.20); RDW 13.3 % (11.5-14.5); WBC 5.57 X 10*3/uL (4.50-10.00)
[2022-01-24 14:34] LABS: Anion Gap 10.5 mmol/L (10.00-18.00); Carbon Dioxide 24.5 mmol/L (20.0-27.5); Potassium 4.2 mmol/L (3.5-5.5)
== END | disposition home or self-care (01) ==
LOC: LABPAT 08:58
PROVIDERS: ATTEND Orthopaedic Surgery Hand Surgery
DX: Z01.812 Encounter for preprocedural laboratory examination (principal); G56.02 Carpal tunnel syndrome, left upper limb; M65.4 Radial styloid tenosynovitis [de Quervain]
CPT/HCPCS: 80051; 85025

== ENCOUNTER → 2022-02-23 | Outpatient (CLI) | payer OTHER ==
--- NOTE | 2022-02-23 17:12 | MR ---
EXAMINATION TYPE: MR lumbar spine wo con DATE OF EXAM: 02/23/2022 COMPARISON: MRI lumbar spine 03/17/2021 HISTORY: Lower back pain, LLE radiculopathy, worsened after of twins 2020. TECHNIQUE: Multiplanar, multisequence images of the lumbar spine were acquired without IV contrast. L1-L2: Normal disc appearance without desiccation. No herniation, protrusion or disc bulging. No ca nal stenosis is present. Foramina are patent bilaterally. L2-L3: Normal disc appearance without desiccation. No herniation, protrusion or disc bulging. No ca nal stenosis is present. Foramina are patent bilaterally. L3-L4: Normal disc appearance without desiccation. No herniation, protrusion or disc bulging. No ca nal stenosis is present. Foramina are patent bilaterally. L4-L5: Normal disc appearance without desiccation. No herniation, protrusion or disc bulging. No ca nal stenosis is present. Foramina are patent bilaterally. L5-S1: Normal disc appearance without desiccation. No herniation, protrusion or disc bulging. No ca nal stenosis is present. Foramina are patent bilaterally. Lumbar segments are intact. No paraspinal masses are identified. Conus medullaris has a normal appe arance. Spinal curvature is again noted. IMPRESSION: Spinal curvature is again seen. No evident disc herniation.
== END | disposition home or self-care (01) ==
LOC: RADMRIMAIN 14:29
PROVIDERS: ATTEND Orthopaedic Surgery
DX: M43.8X6 Other specified deforming dorsopathies, lumbar region (principal)
CPT/HCPCS: 72148

== ENCOUNTER → 2022-03-30 | Outpatient (CLI) | payer OTHER | LOC: PNWHC3 15:39 | PROVIDERS: ATTEND Specialist | DX: M46.1 Sacroiliitis, not elsewhere classified (principal); M54.16 Radiculopathy, lumbar region; Z88.5 Allergy status to narcotic agent | CPT/HCPCS: 99211 ==

== ENCOUNTER → 2022-04-12 | Outpatient (CLI) | payer OTHER ==
[2022-04-12 14:52] LABS: Basophils # (A) 0.03 X 10*3/uL (0.00-0.10); Basophils % (A) 0.4 %; Eosinophils # (A) 0.16 X 10*3/uL (0.04-0.35); Eosinophils % (A) 2.3 %; HCT 42.2 % (37.2-46.3); HGB 13.6 g/dL (12.0-15.0); Immature Grans, Automated 0.1 %; Lymphocytes # (A) 1.61 X 10*3/uL (0.90-5.00); Lymphocytes % (A) 23.1 %; MCH 27.9 pg (27.0-32.0); MCHC 32.2 g/dL (32.0-37.0); MCV 86.5 fL (80.0-97.0); Monocytes # (A) 0.37 X 10*3/uL (0.20-1.00); Monocytes % (A) 5.3 %; NRBC Per 100 WBC 0 /100 WBCS (0.0-0.0); Neutrophils # (A) 4.79 X 10*3/uL (1.80-7.70); Neutrophils % (A) 68.8 %; Platelet Count 181 X 10*3/uL (140-440); RBC 4.88 X 10*6/uL (4.10-5.20); RDW 13.2 % (11.5-14.5); WBC 6.97 X 10*3/uL (4.50-10.00)
[2022-04-12 15:55] LABS: Erythrocyte Sedimentation Rate 12 mm/Hr (0-20)
[2022-04-12 17:53] LABS: % Iron Saturation 10.53 (12.00-45.00); ALT 14 U/L (8-44); AST 18 U/L (13-35); African American GFR (CKD) 106.2 (60.0-200.0); Albumin 4.8 g/dL (3.8-4.9); Albumin/Globulin Ratio 1.97 (1.60-3.17); Alkaline Phosphatase 75 U/L (41-126); BUN/Creat Ratio 11.19 Ratio (12.00-20.00); C Reactive Protein <0.30 mg/dL (0.00-0.80); Calcium 9.4 mg/dL (8.7-10.3); Carbon Dioxide 20.7 mmol/L (20.0-27.5); Chloride 103 mmol/L (96-109); Ferritin 25.9 ng/mL (10.0-291.0); Globulin 2.4 g/dL (1.6-3.3); Glucose 104 mg/dL (70-110); Iron 50 ug/dL (50-170); LDL Cholesterol,Calculated 121.7 mg/dL (0.0-131.0); Non-African American GFR(CKD) 91.7 (60.0-200.0); Potassium 4.2 mmol/L (3.5-5.5); Sodium 137 mmol/L (135-145); Total Iron Binding Capacity 479 ug/dL (228-460); Total Protein 7.2 g/dL (6.2-8.2)
[2022-04-12 17:54] LABS: Hepatitis C IgG Antibody Nonreactive (Nonreactive)
[2022-04-12 18:04] LABS: Rheumatoid Factor, Qnt <10 IU/mL (0-15)
== END | disposition home or self-care (01) ==
LOC: LABWHC1 11:03
PROVIDERS: ATTEND Family Medicine
DX: Z00.00 Encounter for general adult medical examination without abnormal findings (principal); Z11.59 Encounter for screening for other viral diseases; M19.90 Unspecified osteoarthritis, unspecified site; R73.9 Hyperglycemia, unspecified; Z86.2 Personal history of diseases of the blood and blood-forming organs and certain disorders involving the immune mechanism
CPT/HCPCS: 36415; 80053; 80061; 82607; 82728; 82746; 83036; 83540; 83550; 84439; 84443; 85025; 85652; 86038; 86140; 86431; 86803

== ENCOUNTER 2022-06-20 10:35 | Day surgery (SDC) | payer OTHER ==
[2022-06-15 17:29] VITALS: BMI 26.5
[2022-06-20] MEDS ORDERED: LACTATED RINGERS 1,000 ML IV SCH (10:53)
[2022-06-20] MEDS ORDERED: LIDOCAINE 1% (10MG/ML) FOR IV START INTRADERMA PRN (10:53)
[2022-06-20 11:10] VITALS: TEMP 97
[2022-06-20] MEDS ORDERED: MIDAZOLAM 2 MG/2 ML VIAL ONE (11:27)
[2022-06-20] MEDS ORDERED: methylPREDNISolone ACETATE 80 MG/ML 1 ML VIAL ONE (11:27)
[2022-06-20] MEDS ORDERED: fentaNYL (PF) 50 MCG/ML 2 ML AMP ONE (11:27)
[2022-06-20] MEDS ORDERED: ROPIVACAINE 5 MG/ML 20 ML AMPULE ONE (11:27)
--- NOTE | 2022-06-20 11:41 | P.PCN ---
Date of Procedure: 06/20/22 Procedure(s) Performed: Procedure= bilateral sacroiliac joints steroid injection under fluoroscopy guidance (fluoroscopy image stored on file in the radiology Department ) Preoperative diagnosis= 1-sacroiliitis . Postoperative diagnosis=Same as preop Diagnosis . Complication = none Condition= stable Anesthesia= moderate sedation with intravenous Versed 2 mg , and fentanyl 100 micrograms . Sedation start time: 1128 Sedation end time : 1139 Indication for the procedure= patient complaining of low back pain , examination was positive for severe tenderness over the sacroiliac joints bilaterally and patient diagnosed with sacroiliitis, for this reason , she was good candidate for sacroiliac joint steroid injection. Description of the procedure= procedure risk and benefits discussed with the patient, including but not limited, risk of infection and bleeding, and ALLERGIC reaction to the medication and not complete pain relief and patient agreed with the preceding patient taken to the operating room, placed in prone position or standard monitors applied to the patient then after induction of anesthesia back prepped with chlorhexidine 3 times , Then under strict sterile technique, first I did the right sacroiliac joint the which was identified under fluoroscopy guidance been local infiltration of the skin and subcu interstitial with lidocaine 1% then 22-gauge Quincke Needle advanced slowly under fluoroscopy and placed in the right sacroiliac joint needle placement confirmed with AP and oblique and lateral view and after appropriate needle placement confirmed and after negative aspiration, or heme , then Ropivacaine 0.5% 4 mL, and 40 mg of Depo-Medrol mixed together and injected in the right sacroiliac joint after negative aspiration patient tolerated the procedure well without any complication. Then the left sacroiliac joint steroid injection done under strict sterile technique local infiltration of the skin and subcu interstitial at the location of the left sacroiliac joint then a 22-gauge Quincke Needle advanced slowly under fluoroscopy time placed in the left sacroiliac joint, needle placement confirmed with AP and oblique and lateral view then after appropriate needle placement confirmed and after negative aspiration 0.5% Ropivacaine 4 mL and 40 mg of Depo-Medrol injected in the left sacroiliac joint after negative aspiration patient tolerated the procedure well that any complications and she will follow up in clinic 3 weeks
[2022-06-20] MEDS ORDERED: IV FLUID CONTINUATION 700 ML IV ONE (11:46)
--- NOTE | 2022-06-20 11:54 | FL ---
Intraoperative/procedural fluoroscopic services were provided. Total fluoroscopy time is 9 seconds wi th a total of 2 submitted images to PACS. Please see the operative/procedural note for further detail s.
[2022-06-20 12:14] VITALS: BP 132/83; PULSE 49; RESP 20
== END 2022-06-20 12:16 | disposition home or self-care (01) ==
LOC: ORPAIN 10:35
PROVIDERS: ATTEND Specialist
DX: M46.1 Sacroiliitis, not elsewhere classified (principal); Z88.5 Allergy status to narcotic agent; Z87.891 Personal history of nicotine dependence
CPT/HCPCS: 81025; J2250; J1040; J3010; J2795; G0260

== ENCOUNTER → 2022-07-27 | Outpatient (CLI) | payer OTHER ==
[2022-07-27 14:29] VITALS: BP 132/87; PULSE 54; RESP 18; TEMP 97.9
--- NOTE | 2022-07-27 14:53 | P.PAINPG ---
PQRS Measure Charge Sheet Comment: A 42 yr old female with a history of severe and chronic low back pain secondary to lumbar degenerative disc diseases and lumbar spondylosis with facet arthropathy without myelopathy presents today for evaluation s/p BL SI injection. Pt states she experienced 70% pain relief x 1 wk s/p procedure. Pain level is currently at 8/10 in intensity, constant, localized in BL lower lumbar spine, achy in character w shooting towards BL hips and LLE and L foot. Pain is provoked by , laying on her side and cold weather. Pain is alleviated with PT x 12 weeks in March 2022, chiropractic treatments weekly x 7 wks, heat, meds (Ibuprofen), repositioning, laying supine and rest. Interventional pain procedures completed include BL SI injection Patient is currently on Ibuprofen Patient denies any side effects of the medication(s), denies excessive drowsiness or sleepiness, denies suicidal ideation and reports that the current pain medication is helping to control the pain and improve activities of daily living. Patient denies any motor or sensory deficits. Patient denies any fever or night sweats, denies any change in the bowel movements or urination. Physical Examination: -Constitutional: Cooperative. Not in acute distress . - Neurologic: Cranial nerve II to XII intact. No focal neurological defi cits. - Psychatric: Alert & oriented x 3. Matching mood & appropriate affect. Judgment and insight intact. - Musculoskeletal: Cervical spine: Muscle bulk/ tone/ strength in the bilateral upper extremities normal Vertebral body tenderness to palpation over Spurling test positive Distraction test positive Facet loading test positive Thoracic spine Muscle bulk / tone/ strength in the bilateral paraspinal muscles normal Vertebral body tender to palpation over Facet loading test positive Lumbar spine: Motor bulk/ tone/ strength lower extremities , thigh and legs : 5/5 Deep tendon reflexes : Normal Knee Jerk. Normal Ankle Jerk . Vertebral body tenderness to palpation over L4 Lumbar Facet Loading Test positive Straight Leg Raise: positive at 30 degrees right side/ left side Gaenslen's Test positive Sacral spine : Severe tenderness over the Sacroiliac joint: right side / left side Range of motion: Flexion of the lumbar spine <60 degrees Range of motion: Extension of the lumbar spine <20 degrees Gaenslen's Test positive Karri's Test positive Nidia test: positive right side / left side Thigh Thrust Test Sacral Thrust Test Assessment and plan: Chronic low back pain secondary to lumbar degenerative disc disease , lumbar spondylosis with facet arthropathy without myelopathy Recommendation of RASHEEDA L4-L5 #1. May need a series of injections, up to 3 within a 6 mo time frame, for optimal pain relief. Risks, benefits of procedure discussed and pt verbalized understanding. Denies anticoagulant use or medical history of diabetes. All patient questions answered MAPS reviewed and it was appropriate. I have spent less than 30 minutes on patient care today. Dr Box was available by phone for the evaluation of this patient. The time was used to review the medical records including relevant urine studies and Prescription history (MAPs), review of the available imaging, evaluation and examination of the patient, coordination of care with the medical staff and if applicable referring physicians, as well as creation of the medical record Home Medications: Ambulatory Orders No Known Home Medications 02/07/22 Controlled Substance Measures - Controlled Substance Measures Is patient prescribed a controlled substance at discharge?: No
== END ==
LOC: PNWHC3 12:41
PROVIDERS: ATTEND Specialist
DX: M47.816 Spondylosis without myelopathy or radiculopathy, lumbar region (principal); G89.29 Other chronic pain; M51.36 Other intervertebral disc degeneration, lumbar region; Z88.5 Allergy status to narcotic agent
CPT/HCPCS: 99211

== ENCOUNTER 2022-09-07 12:16 | Day surgery (SDC) | payer OTHER ==
[2022-09-05 11:08] VITALS: BMI 25.6
[~2022-09-07 12:16] MED LIST changes: +LIDOCAINE 1% (10MG/ML) FOR IV START INTRADERMA PRN
[2022-09-07 12:41] VITALS: PULSE 52; RESP 18; TEMP 97.3
[2022-09-07] MEDS ORDERED: methylPREDNISolone ACETATE 80 MG/ML 1 ML VIAL ONE (13:12)
[2022-09-07] MEDS ORDERED: IOPAMIDOL M200 10 ML VIAL ONE (13:12)
[2022-09-07] MEDS ORDERED: MIDAZOLAM 2 MG/2 ML VIAL ONE (13:12)
[2022-09-07] MEDS ORDERED: fentaNYL (PF) 50 MCG/ML 2 ML AMP ONE (13:12)
--- NOTE | 2022-09-07 13:24 | P.PCN ---
Date of Procedure: 09/07/22 Procedure(s) Performed: PREOPERATIVE DIAGNOSIS: 1- Lumbar Degenerative Disc Diseases 2-Lumbar spondylosis with Facet arthropathy without myelopathy POSTOPERATIVE DIAGNOSIS: Same as preop diagnosis. PROCEDURE 1. Lumbar epidural steroid injection under fluoroscopic guidance at the L4-5 level. (Fluoroscopy imaging was available in radiology department) 2. Lumbar epidurogram. ANESTHESIA: moderate sedation with intravenous Versed 2 mg ,and fentanyle 50 Mcg Sedation start time : 1318 Sedation end time : 1323 EBL: Minimal PROCEDURE INDICATION: The patient with low back pain and radiculitis symptoms unresponsive to conservative treatment. Fluoroscopy was used to optimize visualization of the needle placement and to maximize safety. PROCEDURE DESCRIPTION / TECHNIQUE: The patient was seen and identified in the preoperative area. Risks, benefits, complications including but not limited to infections ,bleeding ,allergic reaction to the medications ,nerve damage and not complete pain releife , and alternatives were discussed with the patient. The patient agreed to proceed with the procedure and signed the consent. IV was started, and vital signs were stable. Patient was taken to the OR and time out was completed. The patient was placed in the prone position on procedure table and a pillow was placed under the abdomen to reduce lumbar lordosis. The lumbosacral area was prepped and draped in the usual sterile fashion.ere closely monitored during the procedure. Conscious sedation was used during the procedure to decrease patients anxiety. Vital signs was monitered during the entire procedure. Using anterior-posterior fluoroscopy, the L4-5 interlaminar space was identified and the skin over this site was marked and then infiltrated with 1% lidocaine subcutaneously. Subsequently, a 20-gauge Tuohy epidural needle was inserted and advanced toward the epidural space using the ``Loss of resistance technique and guided by AP and lateral fluoroscopy. The correct needle position in the epi dural space was verified with the injection of 2 mL of the water soluble contrast dye Isovue 200 contrast and observing an excellent epidurogram with the epidural spread of the dye, after negative aspiration for blood and CSF and in the absence of paresthesias. Again after negative aspiration, a 6 ml mixture containing 80 mg of Depo-medrol ( Preservetive Free ), and 2 ml of preservative free Normal Saline, and 2 ml of preservative free lidocaine 1% solution was injected and a washout of epidurogram was seen. Needle was withdrawn intact, skin was cleansed, and bandages were applied. COMPLICATIONS: None DISPOSITION / PLANS: The patient was placed in a supine position and transferred to the recovery area in a stable condition for observation. There was no evidence of lower extremity motor or sensory deficit after the procedure. Patient was discharged from the recovery room after meeting discharge criteria. Home discharge instructions were given to the patient by the staff. The patient was reexamined prior to discharge. The patient will schedule a follow up in the clinic in 2-4 weeks.
[2022-09-07] MEDS ORDERED: IV FLUID CONTINUATION 700 ML IV ONE (13:29)
[2022-09-07 13:52] VITALS: BP 125/78
--- NOTE | 2022-09-07 16:43 | FL ---
EXAMINATION TYPE: FL guided pain mgmt statistic DATE OF EXAM: 09/07/2022 FLUOROSCOPY Fluoroscopy time of 1 seconds was used during lumbar epidural injection. 1 image/s document/s the pr antonietta.
== END 2022-09-07 14:05 | disposition home or self-care (01) ==
LOC: ORPAIN 12:16
PROVIDERS: ATTEND Specialist
DX: M51.16 Intervertebral disc disorders with radiculopathy, lumbar region (principal); M47.26 Other spondylosis with radiculopathy, lumbar region
CPT/HCPCS: 81025; 62323; J2250; J1040; J3010; Q9966

== ENCOUNTER 2022-10-09 09:58 | Emergency (ER) | payer OTHER ==
[2022-10-09 10:04] VITALS: BP 123/68; PULSE 79; RESP 22; TEMP 97.8
[2022-10-09] MEDS ORDERED: KETOROLAC 15 MG/ML 1 ML VIAL IVP STA (10:10)
[2022-10-09] MEDS ORDERED: SODIUM CHLORIDE 0.9% 1,000 ML IV STA (10:10)
[2022-10-09] MEDS ORDERED: ONDANSETRON 4 MG/2 ML VIAL IVP STA (10:10)
--- NOTE | 2022-10-09 10:16 | ED ---
General Adult HPI - General Chief complaint: Nausea/Vomiting/Diarrhea Stated complaint: abd pain, vomiting, blood in stool Time Seen by Provider: 10/09/22 10:05 Source: patient, RN notes reviewed, old records reviewed Mode of arrival: ambulatory Limitations: no limitations - History of Present Illness Initial comments: This is a 42-year-old female who presents emergency department stating that she started having abdominal pain that is causing her to vomit. Patient states it started about 2:00 in the morning. Patient states she's also some blood in her stool she states it was bright red.. Patient states the pain is always there but becomes severe and then she vomits and then it goes away. Patient states on the left side than the right. Patient denies any fevers or chills. Patient denies any dysuria hematuria urinary frequency. Patient denies any back pain. Patient denies any chest pain or shortness of breath. Patient denies any light headedness or dizziness. - Related Data Home Medications Medication Instructions Recorded Confirmed Pregabalin [Lyrica] 50 mg PO HS 10/09/22 10/09/22 Previous Rx's Medication Instructions Recorded Ondansetron [Zofran] 4 mg PO Q8HR PRN #10 tab 10/09/22 Allergies Allergy/AdvReac Type Severity Reaction Status Date / Time bee venom protein (honey bee) Allergy Anaphylaxis Verified 10/09/22 10:54 morphine Allergy Rash/Hives Verified 10/09/22 10:54 Review of Systems ROS Statement: Those systems with pertinent positive or pertinent negative responses have been documented in the HPI. ROS Other: All systems not noted in ROS Statement are negative. Past Medical History Past Medical History: Cancer Additional Past Medical History / Comment(s): Hx Cervical Cancer in 2008. Bilat Carpal Tunnel. History of Any Multi-Drug Resistant Organisms: None Reported Past Surgical History: Section, Tubal Ligation Additional Past Surgical History / Comment(s): C-SEC X 4. LEEP. PAIN CLINIC PROCEDURE Past Anesthesia/Blood Transfusion Reactions: No Reported Reaction Past Psychological History: No Psychological Hx Reported Smoking Status: Never smoker Past Alcohol Use History: None Reported Past Drug Use History: None Reported - Past Family History Father History Unknown: Yes Family Medical History: No Reported History General Exam - General Exam Comments Initial Comments: GENERAL: Patient is well-developed and well-nourished. Patient is nontoxic and well- hydrated and is in mild distress. ENT: Neck is soft and supple. No significant lymphadenopathy is noted. Oropharynx is clear. Moist mucous membranes. Neck has full range of motion without eliciting any pain. EYES: The sclera were anicteric and conjunctiva were pink and moist. Extraocular movements were intact and pupils were equal round and reactive to light. Eyelids were unremarkable. PULMONARY: Unlabored respirations. Good breath sounds bilaterally. No audible rales rhonchi or wheezing was noted. CARDIOVASCULAR: There is a regular rate and rhythm without any murmurs gallops or rubs. ABDOMEN: Patient has some left lower quadrant tenderness no rebound or guarding SKIN: Skin is clear with no lesions or rashes and otherwise unremarkable. NEUROLOGIC: Patient is alert and oriented x3. Cranial nerves II through XII are grossly intact. Motor and sensory are also intact. Normal speech, volume and content. Symmetrical smile. MUSCULOSKELETAL: Normal extremities with adequate strength and full range of motion. LYMPHATICS: No significant lymphadenopathy is noted PSYCHIATRIC: Normal psychiatric evaluation. Limitations: no limitations Course Vital Signs 10/09/22 10:01 Temperature 97.8 F Pulse Rate 79 Respiratory 22 Rate Blood Pressure 123/68 O2 Sat by Pulse 96 Oximetry Medical Decision Making - Medical Decision Making I did a rectal exam on the patient and she did have an external hemorrhoid that was no active bleeding. I went and revisited the patient in leads 2 occasions and she was resting comfortably in no distress I palpated the patient's abdomen was nontender to time. Patient had no vomiting in the ER. - Lab Data Result diagrams: 10/09/22 10:18 10/09/22 10:18 Lab Results 10/09/22 10/09/22 10/09/22 Range/Units 10:18 10:18 12:52 WBC 12.7 H (3.8-10.6) k/uL RBC 4.48 (3.80-5.40) m/uL Hgb 13.6 (11.4-16.0) gm/dL Hct 38.4 (34.0-46.0) % MCV 85.7 (80.0-100.0) fL MCH 30.4 (25.0-35.0) pg MCHC 35.5 (31.0-37.0) g/dL RDW 13.7 (11.5-15.5) % Plt Count 166 (150-450) k/uL MPV 9.9 Neutrophils % 83 % Lymphocytes % 13 % Monocytes % 2 % Eosinophils % 1 % Basophils % 0 % Neutrophils # 10.5 H (1.3-7.7) k/uL Lymphocytes # 1.6 (1.0-4.8) k/uL Monocytes # 0.3 (0-1.0) k/uL Eosinophils # 0.1 (0-0.7) k/uL Basophils # 0.0 (0-0.2) k/uL Sodium 138 (137-145) mmol/L Potassium 3.9 (3.5-5.1) mmol/L Chloride 108 H (98-107) mmol/L Carbon Dioxide 22 (22-30) mmol/L Anion Gap 8 mmol/L BUN 12 (7-17) mg/dL Creatinine 0.62 (0.52-1.04) mg/dL Est GFR (CKD-EPI)AfAm >90 (>60 ml/min/1.73 sqM) Est GFR (CKD-EPI)NonAf >90 (>60 ml/min/1.73 sqM) Glucose 121 H (74-99) mg/dL Calcium 9.0 (8.4-10.2) mg/dL Total Bilirubin 0.3 (0.2-1.3) mg/dL AST 25 (14-36) U/L ALT 19 (4-34) U/L Alkaline Phosphatase 76 (38-126) U/L Total Protein 7.0 (6.3-8.2) g/dL Albumin 4.1 (3.5-5.0) g/dL Amylase 45 (30-110) U/L Lipase 90 (23-300) U/L Urine Color Yellow Urine Appearance Cloudy H (Clear) Urine pH 6.5 (5.0-8.0) Ur Specific Admire 1.031 (1.001-1.035) Urine Protein 1+ H (Negative) Urine Glucose (UA) Negative (Negative) Urine Ketones Negative (Negative) Urine Blood Moderate H (Negative) Urine Nitrite Negative (Negative) Urine Bilirubin Negative (Negative) Urine Urobilinogen <2.0 (<2.0) mg/dL Ur Leukocyte Esterase Negative (Negative) Urine RBC 3 (0-5) /hpf Urine WBC 7 H (0-5) /hpf Ur Squamous Epith Cells 2 (0-4) /hpf Urine Mucus Many H (None) /hpf Disposition Clinical Impression: Acute vomiting, Rectal bleeding, Hemorrhoids Disposition: HOME SELF-CARE Condition: Good Instructions (If sedation given, give patient instructions): Acute Nausea and Vomiting (ED) Additional Instructions: Patient should follow-up with the GI doctor for the rectal bleeding. Prescriptions: Ondansetron [Zofran] 4 mg PO Q8HR PRN #10 tab PRN Reason: Nausea And Vomiting Is patient prescribed a controlled substance at d/c from ED?: No Referrals: Wiliam Álvarez MD [Primary Care Provider] - 1-2 days Time of Disposition: 13:34
[2022-10-09 10:22] LABS: Basophils % (A) 0 %; Eosinophils # (A) 0.1 k/uL (0-0.7); Eosinophils % (A) 1 %; HCT 38.4 % (34.0-46.0); HGB 13.6 gm/dL (11.4-16.0); Lymphocytes # (A) 1.6 k/uL (1.0-4.8); Lymphocytes % (A) 13 %; MCH 30.4 pg (25.0-35.0); MCHC 35.5 g/dL (31.0-37.0); MCV 85.7 fL (80.0-100.0); Mean Platelet Volume 9.9; Monocytes # (A) 0.3 k/uL (0-1.0); Monocytes % (A) 2 %; Neutrophils # (A) 10.5 k/uL (1.3-7.7); Neutrophils % (A) 83 %; Platelet Count 166 k/uL (150-450); RBC 4.48 m/uL (3.80-5.40); RDW 13.7 % (11.5-15.5); WBC 12.7 k/uL (3.8-10.6)
[2022-10-09 10:36] LABS: ALT 19 U/L (4-34); AST 25 U/L (14-36); African American GFR (CKD) >90 (>60 ml/min/1.73 sqM); Albumin 4.1 g/dL (3.5-5.0); Alkaline Phosphatase 76 U/L (38-126); Amylase 45 U/L (30-110); Anion Gap 8 mmol/L; Blood Urea Nitrogen 12 mg/dL (7-17); Carbon Dioxide 22 mmol/L (22-30); Chloride 108 mmol/L (98-107); Glucose 121 mg/dL (74-99); Lipase 90 U/L (23-300); Non-African American GFR(CKD) >90 (>60 ml/min/1.73 sqM); Potassium 3.9 mmol/L (3.5-5.1); Sodium 138 mmol/L (137-145); Total Bilirubin 0.3 mg/dL (0.2-1.3)
[2022-10-09 13:29] LABS: Appearance,Urine Cloudy (Clear); Bilirubin,Urine Negative (Negative); Blood,Urine Moderate (Negative); Color,Urine Yellow; Glucose,Urine (UA) Negative (Negative); Ketones,Urine Negative (Negative); Leukocyte Esterase,Urine Negative (Negative); Mucus,Urine Many /hpf; Nitrite,Urine Negative (Negative); PH, Urine 6.5 (5.0-8.0); Protein,Urine 1+ (Negative); RBC,Urine 3 /hpf (0-5); Specific Gravity,Urine 1.031 (1.001-1.035); Squamous Epithelial Cell,Urine 2 /hpf (0-4); Urobilinogen,Urine <2.0 mg/dL (<2.0); WBC,Urine 7 /hpf (0-5)
== END 2022-10-09 14:03 | disposition home or self-care (01) ==
LOC: EC 09:58
DX: R11.10 Vomiting, unspecified (principal); K62.5 Hemorrhage of anus and rectum; Z91.030 Bee allergy status; Z88.5 Allergy status to narcotic agent
CPT/HCPCS: 36415; 80053; 82150; 83690; 85025; 81001; 99284; 96374; 96375; 96361; J2405; J1885

== ENCOUNTER → 2022-11-30 | Outpatient (CLI) | payer OTHER ==
--- NOTE | 2022-11-30 10:28 | CT ---
EXAMINATION TYPE: CT abdomen pelvis w con DATE OF EXAM: 11/30/2022 COMPARISON: None HISTORY: Pelvic and perineal pain CT DLP: 890 mGycm CONTRAST: CT scan of the abdomen and pelvis is performed with Oral Contrast and with IV Contrast, patient injec ari with 100 ml mL of Isovue 300. FINDINGS: LUNG BASES-: No visible nodule. No infiltrate. LIVER/GB: No calcified gallstones. No space occupying hepatic lesion. Biliary tree is of normal ca liber. PANCREAS: No inflammation. No distinct mass. SPLEEN: No splenic enlargement. No lesion seen. ADRENALS: No nodule. No thickening. KIDNEYS/BLADDER: No hydronephrosis. No nephrolithiasis. No distinct renal mass. Urinary bladder g rossly unremarkable. BOWEL: Normal appendix. Normal bowel caliber. No inflammation. GENITAL ORGANS: No gross abnormality. LYMPH NODES: No greater than 1cm abdominal or pelvic lymph nodes are appreciated. AORTA: No significant abnormality. OSSEOUS STRUCTURES: No significant abnormality is seen. OTHER: No significant additional abnormality is seen. IMPRESSION: 1. No significant abnormality to account for the patient's symptoms.
== END | disposition home or self-care (01) ==
LOC: RADCTMAIN 08:12
PROVIDERS: ATTEND Family Medicine
DX: R10.2 Pelvic and perineal pain (principal)
CPT/HCPCS: 74177; Q9967

== ENCOUNTER 2023-02-21 12:00 | Day surgery (SDC) | payer OTHER ==
--- NOTE | 2023-02-19 13:22 | P.HPOR ---
History of Present Illness H&P Date: 02/19/23 Chief Complaint: Right carpal tunnel syndrome Subjective: This is a 42 year old female that presents today for follow up evaluation regarding a several year history of progressively worsening right hand paresthesias in the thumb, index, middle and ring fingers. The patient has tried bracing for the symptoms which are no long helping. She denies any inciting event or neck pain. She underwent a left endoscopic carpal tunnel release in February of 2022 and has responded very well to surgery. Physical Examination: RUE: AIN/PIN/Radial/Ulnar/Median motor intact. Radial/Ulnar/Median SILT. 2+/4 Radial/Ulnar pulses palpated. 5/5 APB, 5/5 FDI. Negative Finkelsteins, negative CMC grind, positive Durkan's compression. Imaging: Xrays of the hand 3v taken in office today demonstrate healed 5th metacarpal neck fracture, minimal residual angulation present. Impression: 1.) Right carpal tunnel syndrome Plan: Diagnosis and treatment options were discussed with the patient. The patient has failed conservative treatment and would like to pursue a right endoscopic vs open carpal tunnel release. Risks and benefits of surgery including bleeding, infection, damage to surrounding tissue, need for further surgery, possible need to convert to open procedure, residual numbness were discussed and the patient wished to go forward with surgery. -Rony Robbins DO Orthopedic Hand/Upper Extremity Surgeon Past Medical History Past Medical History: Cancer, Musculoskeletal Disorder Additional Past Medical History / Comment(s): Hx Cervical Cancer in 2008. rt Carpal Tunnel, lower back pain & left leg pain, rt hip arthritis, numbness to rt hand due to carpal tunnel History of Any Multi-Drug Resistant Organisms: None Reported Past Surgical History: Section, Orthopedic Surgery, Tubal Ligation Additional Past Surgical History / Comment(s): C-SEC X 4, left CTS,. LEEP. PAIN CLINIC PROCEDURE. EGD/COLONOSCOPY. carpal tunnel left Past Anesthesia/Blood Transfusion Reactions: No Reported Reaction Smoking Status: Never smoker - Past Family History Father History Unknown: Yes Family Medical History: No Reported History Medications and Allergies Home Medications Medication Instructions Recorded Confirmed Type Pregabalin [Lyrica] 50 mg PO HS 10/09/22 02/15/23 History FLUoxetine HCL [PROzac] 20 mg PO HS 02/15/23 02/15/23 History Allergies Allergy/AdvReac Type Severity Reaction Status Date / Time bee venom protein (honey bee) Allergy Anaphylaxis Verified 02/15/23 11:14 morphine Allergy Rash/Hives Verified 02/15/23 11:14 Physical Examination Osteopathic Statement: *. No significant issues noted on an osteopathic structural exam other than those noted in the History and Physical/Consult.
[~2023-02-21 12:00] MED LIST changes: +DEXAMETHASONE SOD PHOSPHATE 4 MG/ML 1 ML VIAL IV ONE; +ONDANSETRON 4 MG/2 ML VIAL IVP ONE; +Pre Op ABX Message 1 EACH MISC MISCELLANE ONE; +fentaNYL (PF) 50 MCG/ML 2 ML AMP IV PRN
[2023-02-21 12:33] VITALS: TEMP 97.4
[2023-02-21] MEDS ORDERED: BUPIVACAINE (PF) 0.5% 30 ML VIAL SQ ONE ×2 (13:10→13:25)
[2023-02-21] MEDS ORDERED: LIDOCAINE 1% INJ 10MG/ML (20 ML MDV) SQ ONE ×2 (13:10→13:25)
[2023-02-21] MEDS ORDERED: LIDOCAINE 2% INJ 20 MG/ML (2 ML VIAL) ONE (13:13)
[2023-02-21] MEDS ORDERED: PROPOFOL 10 MG/ML 20 ML VIAL IV ONE (13:13)
[2023-02-21] MEDS ORDERED: fentaNYL (PF) 50 MCG/ML 2 ML AMP ONE (13:13)
[2023-02-21] MEDS ORDERED: MIDAZOLAM 2 MG/2 ML VIAL ONE (13:13)
[2023-02-21 14:04] VITALS: RESP 16
[2023-02-21 14:47] VITALS: BP 106/52; PULSE 56
--- NOTE | 2023-02-21 17:02 | P.OP ---
Date of Procedure: 02/21/23 Preoperative Diagnosis: Right carpal tunnel syndrome Postoperative Diagnosis: Right carpal tunnel syndrome Procedure(s) Performed: Right endoscopic carpal tunnel release Anesthesia: MAC Surgeon: Rony Robbins Research Statistician #1: Ebenezer Barbosa Estimated Blood Loss (ml): 0 Pathology: none sent Condition: stable Disposition: PACU Description of Procedure: This is a 42 year old female who presents today for a right endoscopic carpal tunnel release after having failed conservative treatment in the past. Risks and benefits of surgery were discussed with the patient including bleeding, damage to surrounding tissue, infection, need to convert to open procedure, need for further surgery as well as risks of anesthesia including pulmonary embolism and even and the patient wished to proceed with surgical intervention. The patients was seen in the pre-operative area by myself. Consent and H&P were completed and updated. The correct extremity was marked in the pre-operative area by myself and all other questions were answered. Operative Narrative: The patient was brought to the operating room by the department of anesthesia. They remained on the portable stretcher and a rolling hand table was brought to the side of the operative extremity. Pre-operative time out was performed indicating the correct patient, procedure and laterality. All in the room agreed. The patient was then drifted off to sleep by the department of an esthesia. MAC anesthesia was utilized and a 50:50 mixture of 1% Lidocaine and 0.5% bupivacaine was injected into the subcutaneous tissues of the palmar skin, 8ccs total. A nonsterile tourniquet was then applied to the operative extremity and the right upper extremity was then prepped and draped in normal sterile fashion. The operative extremity was the exsanguinated with an esmarch bandage and the tourniquet was inflated to 250mmHg. 15 blade scalpel was utilized to make a transverse incision on the palmar skin just ulnar to the palmaris longus tendon at the level of the distal wrist creas e. Ragnell retractor was then placed radially and blunt dissection was performed to reveal the distal forearm fascia. This was lifted with fine Clemente pick ups and Littler tenotomy scissors were then used to open the forearm fascia transversely and a double skin hook was then placed. Hamate finder was placed into the carpal tunnel and then sequential sized dilators were inserted followed by the synovial elevator to separate the flexor tenosynovium from the undersurface of the transverse carpal ligament and a washboard texture was felt. The Micro[employer]ire endoscopic carpal tunnel release system gun was the then inserted into the carpal tunnel hugging the deep portion of the transverse carpal ligament in line with the base of the ring finger. Transverse fibers of the ligament were directly visualized. Pressure was applied on the palm to reveal the distal extent of the transverse carpal ligament. The blade was then deployed and the distal half of the transverse carpal ligament was released. The scope was then brought distal again and remaining transverse fibers were incised with the blade. The proximal half of the transverse carpal ligament was then divided and again the scope was advanced distal and remaining transverse fibers were incised with the blade. The radial and ulnar leaflets were directly visualized and mobile consistent with complete release. Tenotomy scissors were then ut ilized to release the remaining distal forearm fascia under direct visualization taking care to preserve the palmar cutaneous branch of the median nerve. Skin closure was performed with interrupted 4-0 Monocryl suture followed by Mastisol and steri strips. Sterile dressing was applied consisting of adaptic, 4x4s, Webril, and an ron bandage. Tourniquet was let down and the hand immediately was well perfused. The patient was then woken by the department of anesthesia and transferred to PACU in stable condition. Ebenezer ALEXANDER was present for the case in its entirety and assisted in major portions of the case and protection of vital neurovascular structures. Rony Robbins D.O. Orthopedic Hand/Upper Extremity Surgeon
== END 2023-02-21 15:13 | disposition home or self-care (01) ==
LOC: OR 12:00
PROVIDERS: ATTEND Orthopaedic Surgery Hand Surgery
DX: G56.01 Carpal tunnel syndrome, right upper limb (principal); Z85.41 Personal history of malignant neoplasm of cervix uteri; Z98.891 History of uterine scar from previous surgery; Z98.890 Other specified postprocedural states; Z98.51 Tubal ligation status; Z91.030 Bee allergy status; Z79.899 Other long term (current) drug therapy; Z88.8 Allergy status to other drugs, medicaments and biological substances
CPT/HCPCS: 81025; 29848; J2250; J1100; J2405; J2001 ×2; J3010; J2704